=== PATIENT | male | born 1970 | race Caucasian/White ===

== ENCOUNTER → 2017-07-08 | Outpatient (CLI) | payer MEDICARE, MEDICAID ==
[~2017-07-08] MED LIST: BISO1TAB8; BISO1TAB8 PO; CPR500T PO; CYCL10TA9 PO; CYCL5TAB PO; HYDR-3875 PO; IBUP-1780 PO; LORA10TA7 PO; MELO-170 PO; METR500T PO; MONT10TA21 PO; MONT10TA24 PO; NAPR-243 PO; NF-ESOM40C; NITR-65 PO; OMEP-10 PO; OMEP20TA7 PO; OXYC-471 PO; PRM25T PO; PROP1TAB77 PO; TAMS0.4C98 PO; TRAM50TA2 PO; ZLP10T; xopenex
--- NOTE | 2017-07-08 14:16 | Diagnostic Imaging Report ---
INDICATION: Left ureteral stone. TIME OF EXAMINATION: 02:00 p.m. COMPARISON: No prior studies available for comparison. FINDINGS: There is a 10 mm calcific density in the left abdomen, adjacent to the left transverse process of L3. This most likely represents a ureteral calculus. No other urinary tract calculi are seen. There is moderate stool in the right colon. IMPRESSION: Findings suggestive of left ureteral calculus. Dictated by: Dictated on workstation # [id number]
== END ==
LOC: RAD 13:50
PROVIDERS: ATTEND Urology
DX: N20.1 Calculus of ureter (principal)
CPT/HCPCS: 74018

== ENCOUNTER 2017-07-09 05:35 | Outpatient (CLI) | payer MEDICARE, MEDICAID ==
[~2017-07-09] VITALS: Ht 162.6 cm; Wt 75.1 kg
[~2017-07-09 05:35] MED LIST changes: -HYDR-3875 PO; -IBUP-1780 PO; -LORA10TA7 PO; -MONT10TA24 PO; -NITR-65 PO; -OMEP20TA7 PO; -OXYC-471 PO; -TAMS0.4C98 PO
[2017-07-09] MEDS ORDERED: OMEP20TA7 PO (12:07)
[2017-07-09] MEDS ORDERED: LORA10TA7 PO (12:07)
[2017-07-09] MEDS ORDERED: MONT10TA24 PO (12:07)
[2017-07-09] MEDS ORDERED: OXYC-471 PO (12:07)
[2017-07-09] MEDS ORDERED: IBUP-1780 PO (12:07)
[2017-07-10] MEDS ORDERED: NITR-65 PO (12:53)
[2017-07-10] MEDS ORDERED: HYDR-3875 PO (12:53)
[2017-07-10] MEDS ORDERED: TAMS0.4C98 PO (12:53)
== END 2017-07-09 12:15 ==
LOC: PREOP 05:35
PROVIDERS: ATTEND Urology
DX: Z01.818 Encounter for other preprocedural examination (principal); N20.1 Calculus of ureter; N20.0 Calculus of kidney

== ENCOUNTER 2017-07-11 21:30 | Emergency (ER) | payer MEDICARE, MEDICAID ==
[~2017-07-11] VITALS: Ht 162.6 cm; Wt 68.0 kg
[~2017-07-11 21:30] MED LIST changes: +DEXAMETHASONE 10 MG/ML (DECADRON) 1 ML VIAL ONE; +FUROSEMIDE 40 MG/4 ML INJ (LASIX) ONE; +HYDR-3875 PO; +IBUP-1780 PO; +KETOROLAC 30 MG/ML VIAL ONE; +LIDOCAINE PF 2% 5 ML (XYLOCAINE) VIAL ONE; +LORA10TA7 PO; +MIDAZOLAM 2 MG/2 ML (VERSED) VIAL ONE; +MONT10TA24 PO; +NITR-65 PO; +OMEP20TA7 PO; +ONDANSETRON 4 MG/2 ML (SDV) Z0FRAN ONE; +OXYC-471 PO; +SEVOFLURANE (ULTANE) 15 ML INHAL SOLN ONE; +TAMS0.4C98 PO; +fentaNYL INJECTION 100 MCG/2 ML AMP ONE; +proPOfol 200 MG/20 ML (DIPRIVAN) VIAL IV ONE
--- OUTSIDE RECORDS SUMMARY | 2017-07-11 21:35 | XMS REPORT | Continuity of Care Document ---
Author Author [facility] Organization [facility] Address Unknown Phone Unavailable Allergies Active Description Code Type Severity Reaction Onset Reported/Identified Relationship to Patient Clinical Status Yes No Known Drug Allergies [id number] Drug Allergy Unknown N/A 01/26/2009 Medications There is no data. Problems Date Dx Coded Attending Type Code Diagnosis Diagnosed By 02/15/2010 Ot 729.5 04/20/2010 Ot 272.4 04/20/2010 Ot 275.2 04/20/2010 Ot 276.8 04/20/2010 Ot 401.9 04/20/2010 Ot 493.90 04/20/2010 Ot 530.81 04/20/2010 Ot 558.9 04/20/2010 Ot 729.1 04/20/2010 Ot V58.69 05/09/2011 Ot 272.4 05/09/2011 Ot 288.60 05/09/2011 Ot 401.9 05/09/2011 Ot 429.3 05/09/2011 Ot 786.50 05/09/2011 Ot 790.4 07/17/2013 JOBY TRAN, BHARAT Graham Ot 558.9 07/17/2013 JOBY TRAN, BHARAT Graham Ot 787.91 06/28/2015 SACHI BOYD TASHIA Edward Ot E07.89 06/28/2015 SACHI DO TASHIA K Ot I69.998 06/28/2015 BINGHAM , TASHIA K Ot M47.892 06/28/2015 BINGHAM , TASHIA K Ot R93.7 06/28/2015 SACHI , TASHIA K Ot S06.0X1A 06/28/2015 SACHI , TASHIA K Ot S16.1XXA 06/28/2015 BINGHAM , TASHIA K Ot V43.52XA 06/28/2015 BINGHAM , TASHIA K Ot Y92.414 06/28/2015 BINGHAM , TASHIA K Ot Y99.8 06/28/2015 Ot 401.9 06/28/2015 Ot 780.79 06/28/2015 Ot 785.1 06/28/2015 Ot 786.50 06/28/2015 Ot 786.50 Procedures There is no data. Results Test Result Range Methicillin resistant Staphylococcus aureus (MRSA) screening culture - 08:10 Methicillin resistant Staphylococcus aureus (MRSA) screening culture NEG NRG Encounters ACCT No. Visit Date/Time Discharge Status Pt. Type Provider Facility Loc./Unit Complaint [id number] 06/28/2015 18:13:00 06/28/2015 19:26:00 DIS Emergency TASHIA KARIMI DO [facility] ER [id number] 07/17/2013 21:15:00 07/17/2013 23:37:00 DIS Emergency BHARAT HEMPHILL MD [facility] ER [id number] 07/10/2017 07:45:00 Document Registration [id number] 06/28/2015 19:36:00 Document Registration [id number] 05/16/2011 09:50:00 Document Registration [id number] 05/08/2011 15:30:00 Document Registration [id number] 04/19/2010 03:41:00 Document Registration [id number] 02/15/2010 12:31:00 Document Registration [id number] 01/27/2010 09:06:00 Document Registration
--- OUTSIDE RECORDS SUMMARY | 2017-07-11 21:35 | XMS REPORT | Clinical Summary ---
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 If you do not see the information that you expected, contact Release of Information in the Health Information Management department at [phone] for further assistance in locating additional records.[facility] Allergies No Known Allergies Current Medications Prescription Sig. Disp. Refills Start End Date Status Date vitamins, B complex tab Take 1 Tab by mouth Active daily. CA COMB NO.1/VIT Take by mouth. 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 Family History Medical History Relation Name Comments Diabetes Maternal Aunt Diabetes Maternal Grandfather Hypertension Maternal Grandfather Glaucoma Maternal Grandmother Neurologic Disorder Maternal Parkinson's Grandmother Diabetes Maternal Uncle Cancer Maternal Uncle Thyroid Disease Mother Diabetes Other MGGM Relation Name Status Comments Maternal Aunt Maternal Grandfather Maternal Grandmother Maternal Uncle Maternal Uncle Mother Other MGGM Social History Tobacco Use Types Packs/Day Years Used Date Never Smoker Alcohol Use Drinks/Week oz/Week Comments No 0 Standard 0.0 drinks or equivalent Sex Assigned at Date Recorded Not on file Last Filed Vital Signs Vital Sign Reading Time Taken Blood Pressure 141/94 12/16/2014 3:27 PM CDT Pulse 79 12/16/2014 3:27 PM CDT Temperature - - Respiratory Rate - - Oxygen Saturation - - Inhaled Oxygen - - Concentration Weight 65.8 kg (145 lb) 12/16/2014 3:27 PM CDT Height 162.6 cm (5' 4") 12/16/2014 3:27 PM CDT Body Mass Index 24.89 12/16/2014 3:27 PM CDT Plan of Treatment Health Maintenance Due Date Last Done Comments PHYSICAL (COMPREHENSIVE) 10/13/1979 EXAM PERTUSSIS VACCINE 10/13/1983 TETANUS VACCINE 1989 INFLUENZA VACCINE 01/08/2017 Results Not on filefrom Last 3 Months
--- NOTE | 2017-07-11 21:42 | ED GU-Male ---
General Stated Complaint: KIDNEY STONE Source: patient, EMS Exam Limitations: no limitations History of Present Illness Date Seen by Provider: Jul 11, 2017 Time Seen by Provider: 21:30 Initial Comments Patient presents to ER by EMS with chief complaint that he had stones broke up yesterday or the day before by lithotripsy by his urologist Dr. Francis. He was doing okay but last night he was having quite a bit of pain around 8 or 9:00 U after taking his pain medicine and tonight came back again about 10 out of 10 and his 5 mg hydrocodone did not seem to help. EMS picked him up he is having a lot of left flank pain and gave him 5 mg of morphine and 4 mg of Zofran en route as well as started a liter bag of fluids and a left antecubital 18-gauge IV. Patient says his pain is now about 7-1/2 out of 10 and he still needing something for pain although is not having any nausea. Patient says sometimes it jim a little when he PEs and he's been straining his urine but not seeing any fragments. He's not seeing any hematuria either. Says his thought he might of had a temperature earlier based on feel but EMS reports 99.5F. Allergies and Home Medications Allergies Coded Allergies: No Known Drug Allergies (Unverified , 07/09/17) Home Medications Hydrocodone/Acetaminophen 1 Each Tablet, 1-2 TAB PO Q4H PRN for PAIN, #30 Ref 0 Prescribed by: ANGELA TSAI on 07/10/17 1253 Ibuprofen 800 Mg Tablet, 800 MG PO Q8H PRN for PAIN, (Reported) Loratadine 10 Mg Tablet, 10 MG PO DAILY, (Reported) Montelukast Sodium 10 Mg Tablet, 10 MG PO DAILY, (Reported) Nitrofurantoin Monohyd/M-Cryst 100 Mg Capsule, 1 CAP PO BID for 7 Days, Ref 0 Prescribed by: ANGELA TSAI on 07/10/17 1253 Omeprazole 20 Mg Tablet.dr, 20 MG PO DAILY, (Reported) Oxycodone HCl/Acetaminophen 1 Each Tablet, 1 EACH PO Q6H PRN for PAIN-MODERATE TO SEVERE, (Reported) Oxycodone HCl/Acetaminophen 1 Each Tablet, 1-2 EACH PO Q4H PRN for BREAKTHROUGH PAIN, #30 Ref 0 Prescribed by: ROSA ESPINAL on 07/11/171 Tamsulosin HCl 0.4 Mg Cap, 1 CAP PO DAILY, #14 Ref 0 Prescribed by: ANGELA TSAI on 07/10/17 1253 Constitutional: No chills, No diaphoresis, fever (subjective), No malaise EENTM: No ear pain, No eye pain Respiratory: No cough, No short of breath Cardiovascular: No chest pain, No palpitations Gastrointestinal: abdominal pain (left flank), No constipation, No diarrhea, nausea, No vomiting Genitourinary: burning, denies discharge, dysuria, denies frequency, flank pain (left) Musculoskeletal: see HPI Skin: No pruritus, No rash Past Wzgeyqx-Lchvjl-Eezmbv Hx Patient Social History Recent Hopitalizations: No Immunizations Up To Date Tetanus Booster (TDap): Unknown Seasonal Allergies Seasonal Allergies: Yes Surgeries Surgeries: Gallbladder Cardiovascular Cardiac Disorders: Valvular Heart Disease Neurological Neurological Disorders: Stroke Reproductive System Hx Reproductive Disorders: No Sexually Transmitted Disease: No HIV/AIDS: No Genitourinary Genitourinary Disorders: Prostate Problems, Kidney Stones Gastrointestinal Gastrointestinal Disorders: Gastroesophageal Reflux HEENT Loss of Vision: Right Hearing Impairment: Denies Blood Transfusions Adverse Reaction to a Blood Tr: No (N/A) Physical Exam Vital Signs Vital Sign - Last 12Hours 07/11/17 21:30 Temp 99.7 Pulse 104 Resp 23 B/P (MAP) 129/81 (97) Pulse Ox 98 O2 Delivery Room Air Capillary Refill : General Appearance: WD/WN, mild distress HEENT: PERRL/EOMI, pharynx normal (oral mucosa is moist) Neck: non-tender, supple, normal inspection Cardiovascular: normal peripheral pulses, regular rate, rhythm, no edema Respiratory: chest non-tender, lungs clear, normal breath sounds, no respiratory distress, no accessory muscle use Gastrointestinal: normal bowel sounds, non tender, soft Back: normal inspection, No CVA tenderness (R), CVA tenderness (L) Extremities: normal range of motion, non-tender, normal inspection Neurologic/Psychiatric: alert, normal mood/affect, oriented x 3 Skin: normal color, warm/dry, rash (eczematous rash on face and all 4 extremities) Progress/Results/Core Measures Suspected Sepsis SIRS Temperature: Pulse: Respiratory Rate: Laboratory Tests 07/11/17 21:46: White Blood Count 9.8 Blood Pressure / Mean: Laboratory Tests 07/11/17 21:46: Creatinine 1.00, Platelet Count 268, Total Bilirubin 0.5 Results/Orders Lab Results Laboratory Tests Test 07/11/17 21:46 07/11/17 22:56 Range/Units White Blood Count 9.8 4.3-11.0 10^3/uL Red Blood Count 4.03 L 4.35-5.85 10^6/uL Hemoglobin 12.1 L 13.3-17.7 G/DL Hematocrit 35 L 40-54 % Mean Corpuscular Volume 88 80-99 FL Mean Corpuscular Hemoglobin 30 25-34 PG Mean Corpuscular Hemoglobin Concent 34 32-36 G/DL Red Cell Distribution Width 12.4 10.0-14.5 % Platelet Count 268 130-400 10^3/uL Mean Platelet Volume 9.8 7.4-10.4 FL Neutrophils (%) (Auto) 90 H 42-75 % Lymphocytes (%) (Auto) 7 L 12-44 % Monocytes (%) (Auto) 3 0-12 % Eosinophils (%) (Auto) 0 0-10 % Basophils (%) (Auto) 0 0-10 % Neutrophils # (Auto) 8.8 H 1.8-7.8 X 10^3 Lymphocytes # (Auto) 0.7 L 1.0-4.0 X 10^3 Monocytes # (Auto) 0.2 0.0-1.0 X 10^3 Eosinophils # (Auto) 0.0 0.0-0.3 10^3/uL Basophils # (Auto) 0.0 0.0-0.1 10^3/uL Neutrophils % (Manual) 77 % Lymphocytes % (Manual) 9 % Monocytes % (Manual) 3 % Eosinophils % (Manual) 1 % Basophils % (Manual) 0 % Band Neutrophils 10 % Blood Morphology Comment NORMAL Sodium Level 137 135-145 MMOL/L Potassium Level 3.5 L 3.6-5.0 MMOL/L Chloride Level 102 98-107 MMOL/L Carbon Dioxide Level 24 21-32 MMOL/L Anion Gap 11 5-14 MMOL/L Blood Urea Nitrogen 12 7-18 MG/DL Creatinine 1.00 0.60-1.30 MG/DL Estimat Glomerular Filtration Rate > 60 BUN/Creatinine Ratio 12 Glucose Level 124 H 70-105 MG/DL Calcium Level 8.8 8.5-10.1 MG/DL Total Bilirubin 0.5 0.1-1.0 MG/DL Aspartate Amino Transf (AST/SGOT) 21 5-34 U/L Alanine Aminotransferase (ALT/SGPT) 29 0-55 U/L Alkaline Phosphatase 97 40-136 U/L Total Protein 6.2 L 6.4-8.2 GM/DL Albumin 3.4 3.2-4.5 GM/DL Urine Color SARI H Urine Clarity SLIGHTLY CLOUDY Urine pH 7 5-9 Urine Specific Carmen 1.010 L 1.016-1.022 Urine Protein 1+ H NEGATIVE Urine Glucose (UA) NEGATIVE NEGATIVE Urine Ketones NEGATIVE NEGATIVE Urine Nitrite NEGATIVE NEGATIVE Urine Bilirubin NEGATIVE NEGATIVE Urine Urobilinogen 1 NORMAL MG/DL Urine Leukocyte Esterase 1+ H NEGATIVE Urine RBC (Auto) 5+ H NEGATIVE Urine RBC >100 H /HPF Urine WBC 2-5 /HPF Urine Crystals NONE /LPF Urine Bacteria NONE /HPF Urine Casts NONE /LPF Urine Mucus NEGATIVE /LPF Urine Culture Indicated NO My Orders Orders - ROSA ESPINAL Cbc With Automated Diff (07/11/17 21:36) Comprehensive Metabolic Panel (07/11/17 21:36) Ua Culture If Indicated (07/11/17 21:36) Fentanyl Injection (Sublimaze Injection (07/11/17 21:45) Abdomen/Kub 1view (07/11/17 21:37) Ceftriaxone Injection (Rocephin Injectio (07/11/17 21:45) Manual Differential (07/11/17 21:46) Ondansetron Injection (Zofran Injectio (07/11/17 22:30) Ondansetron Injection (Zofran Injectio (07/11/17 22:23) Fentanyl Injection (Sublimaze Injection (07/11/17 22:45) Fentanyl Injection (Sublimaze Injection (07/11/17 22:45) Ketorolac Injection (Toradol Injection) (07/11/17 22:45) Medications Given in ED Current Medications Medications Dose Ordered Sig/Ana Cristina Route Start Time Stop Time Status Last Admin Dose Admin Ceftriaxone Sodium 1000 mg/ Sodium Chloride 50 ml @ 100 mls/hr ONCE ONCE IV 07/11/17 21:45 07/11/17 22:14 DC 07/11/17 22:08 100 MLS/HR Fentanyl Citrate 50 mcg ONCE ONCE IVP 07/11/17 21:45 07/11/17 21:46 DC 07/11/17 21:40 50 MCG Fentanyl Citrate 50 mcg ONCE ONCE IVP 07/11/17 22:45 07/11/17 22:46 DC 07/11/17 22:52 50 MCG Ketorolac Tromethamine 30 mg ONCE ONCE IVP 07/11/17 22:45 07/11/17 22:46 DC 07/11/17 22:52 30 MG Ondansetron HCl 4 mg ONCE ONCE IVP 07/11/17 22:30 07/11/17 22:31 DC 07/11/17 22:26 4 MG Vital Signs/I&O Vital Sign - Last 12Hours 07/11/17 21:30 Temp 99.7 Pulse 104 Resp 23 B/P (MAP) 129/81 (97) Pulse Ox 98 O2 Delivery Room Air Capillary Refill : Progress Note : Time: 21:41 Progress Note Repeat urine blood and an x-ray. We have his x-ray from yesterday demonstrating a mid ureteral stone on the left side. We will give him some more pain medicine. Unfortunately the urinalysis and culture were not obtained here so we cannot follow that to see if the Macrobid is appropriate and is going to give him a round of Rocephin. Diagnostic Imaging Diagonstic Imaging: Xray Plain Films/CT/US/NM/MRI: abdomen (KUB 1 view) Comments Kidney stone seen in the left ureter is about 2 cm more inferior than seen on the KUB from yesterday. Reviewed: Reviewed by Me Departure Impression Impression: Primary Impression: Ureteral calculus, left Disposition: 01 HOME, SELF-CARE Condition: Improved Departure-Patient Inst. Decision time for Depature: 23:45 Referrals: SELF,BRE TRAN (PCP/Family) Primary Care Physician Patient Instructions: Kidney Stones (DC) Add. Discharge Instructions: Tomorrow morning call Dr. Ayers, urology at [phone] follow-up on the urine culture obtained and make sure you're on appropriate antibiotic. Continue to drink a lot of fluids and use the nausea medicines, Zofran/ondansetron, one tablet every 6 hours as needed. Take 1-2 Percocet every 4 hours as needed to control your pain. Use MiraLAX while you're on the Percocet as he will become constipated. Scripts Oxycodone HCl/Acetaminophen (Percocet 10-325 mg Tablet) 1 Each Tablet 1-2 EACH PO Q4H Y for BREAKTHROUGH PAIN, #30 TAB 0 Refills Prov: ROSA ESPINAL 07/11/17 Copy Copies To 1: BRE LOBO MD Copies To 2: MAX FRANCIS MD, TITUS J Jul 11, 2017 21:42
[2017-07-11] MEDS ORDERED: cefTRIAXone INJECTION 1,000 MG in NS (IVPB) 50 ML IV ONE (21:45)
[2017-07-11] MEDS ORDERED: fentaNYL INJECTION 100 MCG/2 ML AMP IVP ONE ×3 (21:45→22:45)
[2017-07-11 22:00] LABS: BASOPHILS % (AUTO) 0 % (0-10); EOSINOPHILS % (AUTO) 0 % (0-10); HEMATOCRIT 35 % (40-54); HEMOGLOBIN 12.1 G/DL (13.3-17.7); LYMPHOCYTES # (AUTO) 0.7 X 10^3 (1.0-4.0); LYMPHOCYTES % (AUTO) 7 % (12-44); MEAN CORPUSCULAR HEMOGLOBIN 30 PG (25-34); MEAN CORPUSCULAR HGB CONC 34 G/DL (32-36); MEAN CORPUSCULAR VOLUME 88 FL (80-99); MEAN PLATELET VOLUME 9.8 FL (7.4-10.4); MONOCYTES # (AUTO) 0.2 X 10^3 (0.0-1.0); MONOCYTES % (AUTO) 3 % (0-12); NEUTROPHILS # (AUTO) 8.8 X 10^3 (1.8-7.8); NEUTROPHILS % (AUTO) 90 % (42-75); PLATELET COUNT 268 10^3/uL (130-400); RED BLOOD COUNT 4.03 10^6/uL (4.35-5.85); RED CELL DISTRIBUTION WIDTH 12.4 % (10.0-14.5); WHITE BLOOD COUNT 9.8 10^3/uL (4.3-11.0)
[2017-07-11 22:18] LABS: ALANINE AMINOTRANSFERASE 29 U/L (0-55); ALBUMIN 3.4 GM/DL (3.2-4.5); ALKALINE PHOSPHATASE 97 U/L (40-136); BAND NEUTROPHILS 10 %; BASOPHILS % (MANUAL) 0 %; BILIRUBIN,TOTAL 0.5 MG/DL (0.1-1.0); BUN/CREATININE RATIO 12; CALCIUM 8.8 MG/DL (8.5-10.1); CARBON DIOXIDE 24 MMOL/L (21-32); CHLORIDE 102 MMOL/L (98-107); EOSINOPHILS % (MANUAL) 1 %; GFR ESTIMATED > 60; GLUCOSE 124 MG/DL (70-105); LYMPHOCYTES % (MANUAL) 9 %; MONOCYTES % (MANUAL) 3 %; NEUTROPHILS % (MANUAL) 77 %; POTASSIUM 3.5 MMOL/L (3.6-5.0); RBC MORPH NORMAL; SODIUM 137 MMOL/L (135-145); TOTAL PROTEIN 6.2 GM/DL (6.4-8.2)
[2017-07-11] MEDS ORDERED: ONDANSETRON 4 MG/2 ML (SDV) Z0FRAN ONE (22:23)
[2017-07-11] MEDS ORDERED: ONDANSETRON 4 MG/2 ML (SDV) Z0FRAN IVP ONE (22:30)
[2017-07-11] MEDS ORDERED: OXYC-202 PO (22:31)
[2017-07-11] MEDS ORDERED: KETOROLAC 30 MG/ML VIAL IVP ONE (22:45)
[2017-07-11 23:01] LABS: BILIRUBIN,URINE NEGATIVE (NEGATIVE); CLARITY,URINE SLIGHTLY CLOUDY; COLOR,URINE AMBER; GLUCOSE, URINE (UA) NEGATIVE (NEGATIVE); KETONES,URINE NEGATIVE (NEGATIVE); LEUKOCYTE ESTERASE ,URINE 1+ (NEGATIVE); NITRITE,URINE NEGATIVE (NEGATIVE); PH,URINE 7 (5-9); PROTEIN,URINE 1+ (NEGATIVE); UROBILINOGEN,URINE 1 MG/DL (NORMAL)
[2017-07-11 23:09] LABS: RBC,URINE >100 /HPF
[2017-07-12 00:14] VITALS: BP 128/81
--- NOTE | 2017-07-12 06:47 | Diagnostic Imaging Report ---
INDICATION: Left flank pain. FINDINGS: The bowel gas pattern is nonspecific. There are no abnormal abdominal calcifications. Surgical clips are seen in the right upper quadrant. There is a calcification in the left abdomen just below the region of the left UPJ. Possibility of stone cannot be excluded. IMPRESSION: Findings suspect for stone in the proximal left ureter. Recommend clinical correlation and if warranted followup with CT. Dictated by: Dictated on workstation # [id number]
== END 2017-07-12 00:14 | disposition home or self-care (01) ==
LOC: EDUNIT# 21:30 → ER 21:31
DX: N20.1 Calculus of ureter (principal); K21.9 Gastro-esophageal reflux disease without esophagitis; Z87.42 Personal history of other diseases of the female genital tract; Z86.73 Personal history of transient ischemic attack (TIA), and cerebral infarction without residual deficits
CPT/HCPCS: 36415; 74018; 80053; 81000; 85007; 85027; 96365; 96375; 96376

== ENCOUNTER → 2017-07-22 | Outpatient (CLI) | payer MEDICARE, MEDICAID ==
[~2017-07-22] MED LIST changes: -DEXAMETHASONE 10 MG/ML (DECADRON) 1 ML VIAL ONE; -FUROSEMIDE 40 MG/4 ML INJ (LASIX) ONE; -KETOROLAC 30 MG/ML VIAL ONE; -LIDOCAINE PF 2% 5 ML (XYLOCAINE) VIAL ONE; -MIDAZOLAM 2 MG/2 ML (VERSED) VIAL ONE; -ONDANSETRON 4 MG/2 ML (SDV) Z0FRAN ONE; +OXYC-202 PO; -SEVOFLURANE (ULTANE) 15 ML INHAL SOLN ONE; -fentaNYL INJECTION 100 MCG/2 ML AMP ONE; -proPOfol 200 MG/20 ML (DIPRIVAN) VIAL IV ONE
--- NOTE | 2017-07-22 15:52 | Diagnostic Imaging Report ---
INDICATION: Left ureteral stone, post ESWL. TIME OF EXAM: 02:27 p.m. Correlation is made with prior study from 07/11/2017. FINDINGS: Previously seen left abdominal calcification now appears to have progressed distally. There are two calcific densities in the left pelvis, likely fragmented distal left ureteral calculi. Pelvic phleboliths are also present. Bowel gas pattern is unremarkable. IMPRESSION: Progression of left ureteral calculi into the region of the distal left ureter near the UVJ. Dictated by: Dictated on workstation # [id number]
== END ==
LOC: RAD 13:58
PROVIDERS: ATTEND Urology
DX: N20.1 Calculus of ureter (principal); Z98.890 Other specified postprocedural states
CPT/HCPCS: 74018

== ENCOUNTER → 2017-07-23 | Outpatient (CLI) | payer MEDICARE, MEDICAID ==
[2017-07-23 10:10] LABS: BUN/CREATININE RATIO 16; CALCIUM 9.7 MG/DL (8.5-10.1); CARBON DIOXIDE 25 MMOL/L (21-32); CHLORIDE 102 MMOL/L (98-107); CREATININE SERUM 0.83 MG/DL (0.60-1.30); GFR ESTIMATED > 60; GLUCOSE 77 MG/DL (70-105); PHOSPHORUS 2.6 MG/DL (2.3-4.7); POTASSIUM 4.1 MMOL/L (3.6-5.0); SODIUM 138 MMOL/L (135-145); URIC ACID 5.4 MG/DL (2.6-7.2)
== END ==
LOC: LAB 09:27
PROVIDERS: ATTEND Urology
DX: N20.9 Urinary calculus, unspecified (principal)
CPT/HCPCS: 36415; 80048; 83970; 84100; 84550

== ENCOUNTER → 2017-08-19 | Outpatient (CLI) | payer MEDICARE, MEDICAID ==
--- NOTE | 2017-08-19 14:23 | Diagnostic Imaging Report ---
EXAMINATION: Supine abdomen at 2:05 p.m. INDICATION: Left nephrolithiasis, left-sided pain. FINDINGS: The prior abdomen exam of 07/22/2017 noted two calcific densities low in the pelvis on the left. Those calcifications are no longer evident. There are a few other calcifications on each side of the pelvis. These were present on the prior exam and have not changed. I suspect that they are phleboliths. There is no other evidence for a pathological calcification, although both kidneys are partially obscured by bowel gas and fecal material. There is no mass or organomegaly appreciated. The bowel gas pattern itself is nonspecific. Surgical clips are again seen in the right upper quadrant. The osseous structures are intact. IMPRESSION: 1. The two calcifications low in the pelvis on the left seen on the prior exam are no longer visualized on this study. 2. There are no other pathological calcifications noted. Dictated by: Dictated on workstation # [id number]
== END ==
LOC: RAD 13:31
PROVIDERS: ATTEND Urology
DX: N20.2 Calculus of kidney with calculus of ureter (principal)
CPT/HCPCS: 74018

== ENCOUNTER 2018-01-12 07:16 | Emergency (ER) | payer MEDICARE, MEDICAID ==
[~2018-01-12] VITALS: Ht 167.6 cm; Wt 72.6 kg
--- NOTE | 2018-01-12 07:36 | ED General ---
General Chief Complaint: Neurological Problems Stated Complaint: ANXIETY Source of Information: Patient, EMS Exam Limitations: No Limitations History of Present Illness Date Seen by Provider: Jan 12, 2018 Time Seen by Provider: 07:23 Initial Comments Patient presents to ER by EMS with chief complaint that he woke up this morning feeling a little off like his body was on fire and then had a collapsed in the living room did not strike his head or lose consciousness and started having numbness and tingling in his fingers and mouth. He has no history of anxiety depression or panic attacks. He is not having any chest pains or palpitations, nausea, vomiting, diarrhea, fevers, chills, however today he feels malaise and weak all over. He's had a history of high blood pressure and was on blood pressure medicines but then they took him off it because his blood pressure is very labile. He has no other diagnoses medical or psychiatric. No recent trauma or surgery. No shortness of breath. Allergies and Home Medications Allergies Coded Allergies: No Known Drug Allergies (Unverified , 07/09/17) Home Medications Hydrocodone/Acetaminophen 1 Each Tablet, 1-2 TAB PO Q4H PRN for PAIN Prescribed by: ANGELA TSAI on 07/10/17 1253 Ibuprofen 800 Mg Tablet, 800 MG PO Q8H PRN for PAIN, (Reported) Loratadine 10 Mg Tablet, 10 MG PO DAILY, (Reported) Montelukast Sodium 10 Mg Tablet, 10 MG PO DAILY, (Reported) Nitrofurantoin Monohyd/M-Cryst 100 Mg Capsule, 1 CAP PO BID Prescribed by: ANGELA TSAI on 07/10/17 1253 Omeprazole 20 Mg Tablet.dr, 20 MG PO DAILY, (Reported) Oxycodone HCl/Acetaminophen 1 Each Tablet, 1 EACH PO Q6H PRN for PAIN-MODERATE TO SEVERE, (Reported) Oxycodone HCl/Acetaminophen 1 Each Tablet, 1-2 EACH PO Q4H PRN for BREAKTHROUGH PAIN Prescribed by: ROSA ESPINAL on 07/11/172230 Tamsulosin HCl 0.4 Mg Cap, 1 CAP PO DAILY Prescribed by: ANGELA TSAI on 07/10/17 1253 Patient Home Medication List Home Medication List Reviewed: Yes Review of Systems Constitutional: No chills, No diaphoresis EENTM: No ear discharge, No ear pain Respiratory: No cough, No short of breath Cardiovascular: No chest pain, No edema, No Hx of Intervention, No palpitations , No syncope Gastrointestinal: No abdominal pain, No constipation, No diarrhea, No loss of appetite, No melena, No nausea, No vomiting Genitourinary: No discharge, No dysuria Musculoskeletal: No back pain, No joint pain Skin: No pruritus, No rash Psychiatric/Neurological: See HPI; Denies Anxiety, Denies Depressed, Denies Headache, Denies Numbness; Paresthesia Past Wvowwil-Cngqmk-Epvwmr Hx Patient Social History Alcohol Use: Denies Use Recreational Drug Use: No Smoking Status: Never a Smoker Recent Foreign Travel: No Contact w/Someone Who Travel: No Recent Hopitalizations: No Immunizations Up To Date Tetanus Booster (TDap): Unknown Seasonal Allergies Seasonal Allergies: Yes Past Medical History Surgeries: Yes (Gall Bladder`removed) Gallbladder Respiratory: No Cardiac: Yes (MITRAL VALVE PROLAPSE) Valvular Heart Disease 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) Stroke Reproductive Disorders: No Sexually Transmitted Disease: No HIV/AIDS: No Genitourinary: Yes Prostate Problems, Kidney Stones Gastrointestinal: Yes Gastroesophageal Reflux Musculoskeletal: No Endocrine: Yes (THYROID NODULE) Loss of Vision: Right Hearing Impairment: Denies Cancer: No Psychosocial: No Integumentary: No Blood Disorders: No Adverse Reaction/Blood Tranf: No (N/A) Physical Exam Vital Signs Vital Signs - First Documented 01/12/18 07:31 Temp 98.9 Pulse 89 Resp 18 B/P (MAP) 126/82 (97) Pulse Ox 98 O2 Delivery Room Air Capillary Refill : Height, Weight, BMI Height: 5'4.00" Weight: 150lbs. 8.0oz. 68.697866yn; 28.4 BMI Method:Stated General Appearance: No Apparent Distress, WD/WN Eyes: Bilateral Eye Normal Inspection, Bilateral Eye PERRL, Bilateral Eye EOMI HEENT: PERRL/EOMI, TMs Normal, Normal ENT Inspection, Pharynx Normal Neck: Full Range of Motion, Normal Inspection, Non Tender, Supple Respiratory: Chest Non Tender, Lungs Clear, Normal Breath Sounds, No Accessory Muscle Use, No Respiratory Distress Cardiovascular: Regular Rate, Rhythm, No Edema, No Gallop, No Murmur, Normal Peripheral Pulses Gastrointestinal: Normal Bowel Sounds, No Organomegaly, Non Tender, Soft Back: Normal Inspection, No CVA Tenderness Extremity: Normal Capillary Refill, Normal Inspection, Non Tender, No Calf Tenderness, No Pedal Edema Neurologic/Psychiatric: Alert, Oriented x3, No Motor/Sensory Deficits Skin: Normal Color, Warm/Dry Focused Exam Respiratory: Chest Non Tender, Lungs Clear, Normal Breath Sounds, No Accessory Muscle Use, No Respiratory Distress Cardiovascular: Regular Rate, Rhythm, No Edema, Normal Peripheral Pulses Progress/Results/Core Measures Suspected Sepsis SIRS Temperature: Pulse: Respiratory Rate: Laboratory Tests 01/12/18 07:40: White Blood Count 17.1H Blood Pressure / Mean: Laboratory Tests 01/12/18 07:40: Creatinine 1.05, Platelet Count 254, Total Bilirubin 1.2H Results/Orders Lab Results Laboratory Tests Test 01/12/18 07:40 01/12/18 09:27 Range/Units White Blood Count 17.1 H 4.3-11.0 10^3/uL Red Blood Count 5.11 4.35-5.85 10^6/uL Hemoglobin 14.9 13.3-17.7 G/DL Hematocrit 43 40-54 % Mean Corpuscular Volume 85 80-99 FL Mean Corpuscular Hemoglobin 29 25-34 PG Mean Corpuscular Hemoglobin Concent 34 32-36 G/DL Red Cell Distribution Width 13.8 10.0-14.5 % Platelet Count 254 130-400 10^3/uL Mean Platelet Volume 10.1 7.4-10.4 FL Neutrophils (%) (Auto) 91 H 42-75 % Lymphocytes (%) (Auto) 5 L 12-44 % Monocytes (%) (Auto) 4 0-12 % Eosinophils (%) (Auto) 0 0-10 % Basophils (%) (Auto) 0 0-10 % Neutrophils # (Auto) 15.5 H 1.8-7.8 X 10^3 Lymphocytes # (Auto) 0.9 L 1.0-4.0 X 10^3 Monocytes # (Auto) 0.6 0.0-1.0 X 10^3 Eosinophils # (Auto) 0.0 0.0-0.3 10^3/uL Basophils # (Auto) 0.0 0.0-0.1 10^3/uL Neutrophils % (Manual) 91 % Lymphocytes % (Manual) 5 % Monocytes % (Manual) 4 % Band Neutrophils 4 % Blood Morphology Comment NORMAL Sodium Level 135 135-145 MMOL/L Potassium Level 4.0 3.6-5.0 MMOL/L Chloride Level 102 98-107 MMOL/L Carbon Dioxide Level 23 21-32 MMOL/L Anion Gap 10 5-14 MMOL/L Blood Urea Nitrogen 11 7-18 MG/DL Creatinine 1.05 0.60-1.30 MG/DL Estimat Glomerular Filtration Rate > 60 BUN/Creatinine Ratio 10 Glucose Level 160 H 70-105 MG/DL Calcium Level 8.8 8.5-10.1 MG/DL Total Bilirubin 1.2 H 0.1-1.0 MG/DL Aspartate Amino Transf (AST/SGOT) 23 5-34 U/L Alanine Aminotransferase (ALT/SGPT) 18 0-55 U/L Alkaline Phosphatase 101 40-136 U/L C-Reactive Protein High Sensitivity 2.11 H 0.00-0.50 MG/DL Total Protein 6.6 6.4-8.2 GM/DL Albumin 4.0 3.2-4.5 GM/DL Thyroid Stimulating Hormone (TSH) 0.89 0.35-4.94 UIU/ML Urine Color YELLOW Urine Clarity CLEAR Urine pH 7 5-9 Urine Specific [place] 1.005 L 1.016-1.022 Urine Protein 1+ H NEGATIVE Urine Glucose (UA) NEGATIVE NEGATIVE Urine Ketones NEGATIVE NEGATIVE Urine Nitrite NEGATIVE NEGATIVE Urine Bilirubin NEGATIVE NEGATIVE Urine Urobilinogen NORMAL NORMAL MG/DL Urine Leukocyte Esterase NEGATIVE NEGATIVE Urine RBC (Auto) NEGATIVE NEGATIVE Urine RBC NONE /HPF Urine WBC 0-2 /HPF Urine Crystals NONE /LPF Urine Bacteria NEGATIVE /HPF Urine Casts PRESENT /LPF Urine Hyaline Casts 0-2 H /LPF Urine Mucus NEGATIVE /LPF Urine Culture Indicated NO Urine Opiates Screen NEGATIVE NEGATIVE Urine Oxycodone Screen NEGATIVE NEGATIVE Urine Methadone Screen NEGATIVE NEGATIVE Urine Propoxyphene Screen NEGATIVE NEGATIVE Urine Barbiturates Screen NEGATIVE NEGATIVE Ur Tricyclic Antidepressants Screen NEGATIVE NEGATIVE Urine Phencyclidine Screen NEGATIVE NEGATIVE Urine Amphetamines Screen NEGATIVE NEGATIVE Urine Methamphetamines Screen NEGATIVE NEGATIVE Urine Benzodiazepines Screen NEGATIVE NEGATIVE Urine Cocaine Screen NEGATIVE NEGATIVE Urine Cannabinoids Screen NEGATIVE NEGATIVE My Orders Orders - ROSA ESPINAL Cbc With Automated Diff (01/12/18 07:29) Comprehensive Metabolic Panel (01/12/18 07:29) Hs C Reactive Protein (01/12/18 07:29) Thyroid Stimulating Hormone (01/12/18 07:30) Ekg Tracing (01/12/18 07:31) Manual Differential (01/12/18 07:40) Chest Pa/Lat (2 View) (01/12/18 08:55) Drug Screen Stat (Urine) (01/12/18 08:55) Ua Culture If Indicated (01/12/18 08:55) Ondansetron Injection (Zofran Injectio (01/12/18 09:04) Ketorolac Injection (Toradol Injection) (01/12/18 09:04) Vital Signs/I&O 01/12/18 07:31 Temp 98.9 Pulse 89 Resp 18 B/P (MAP) 126/82 (97) Pulse Ox 98 O2 Delivery Room Air Capillary Refill : Progress Note #1: Time: 07:35 Progress Note Sounds of a panic attack. No focal area of infection. We'll get an EKG, basic lab draw. Monitor and observe him. His fingers did appear a little cool to touch and pale which could coincide with an undiagnosed Rinade's phenomenon versus panic attack. Progress Note #2: Time: 08:57 Progress Note Patient does give a history of working on the sun quite a bit lately and little dehydrated appearing. He is tolerating by mouth fluids so we are going obtain a urinalysis and chest x-ray to rule out any other obvious source of his leukocytosis other than just dehydration. We'll give him a day off and some to drink at home such as sports drinks and return precautions. He does have a primary care doctor he can follow-up with. Progress Note #3: Time: 10:37 Progress Note Patient's feeling better. Resting. No further focal complaints or pain. His TSH and other laboratory examinations including urine and chest x-ray were unremarkable sore going to allow him to go home rest drink sports drinks and follow-up the next week or so with Mrs. Fuentes. Diagnostic Imaging Diagonstic Imaging: Xray Plain Films/CT/US/NM/MRI: chest (2v) Comments NAME: ROSALINA ARROYO [facility] REC#: [id number] PHYSICIAN: ROSA ESPINAL MD CC: NADER LAFLEUR MD; ROSA ESPINAL Page 1 of 1 RADIOLOGY REPORT VIA [place], [place] CC: NADER LAFLEUR MD; ROSA ESPINAL Page 1 of 1 RADIOLOGY REPORT NAME: ROSALINA ARROYO [facility] REC#: [id number] PT STATUS: REG ER : 1970 PHYSICIAN: ROSA ESPINAL MD ADMIT DATE: 01/12/18/ER Signed Date of Exam: 01/12/18 CHEST PA/LAT (2 VIEW) INDICATION: Syncope. Weakness Two views show normal heart size and vascularity. The lungs are clear. There is no effusion or pneumothorax. There is no bony abnormality. IMPRESSION: Normal chest with no change from 05/09/2011. Dictated by: Dictated on workstation # [id number] Dict: 01/12/18914 Trans: 01/12/18928 Interpreted by: NADER LAFLEUR MD Electronically signed by: NADER LAFLEUR MD 01/12/18928 Reviewed: Reviewed by Me Departure Impression Primary Impression: Pre-syncope Additional Impression: Leukocytosis Qualified Codes: D72.829 - Elevated white blood cell count, unspecified Disposition: HOME, SELF-CARE Condition: Stable Departure-Patient Inst. Decision time for Depature: 10:39 Referrals: BRE LOBO MD (PCP/Family) Primary Care Physician Patient Instructions: Syncope (Fainting) (DC) Add. Discharge Instructions: Drink plenty of fluids especially sports drinks such as Gatorade or Powerade. Get some rest today. Don't work until tomorrow at the earliest. Follow-up with your primary care provider in the next one-two weeks to discuss your high white count and symptoms. Return to the ER to begin to have fevers chills nausea vomiting chest pain or shortness of breath. All discharge instructions reviewed with patient and/or family. Voiced understanding. Copy Copies To 1: BRE LOBO MD, TITUS J Jan 12, 2018 07:36
[2018-01-12 07:47] LABS: BASOPHILS % (AUTO) 0 % (0-10); EOSINOPHILS % (AUTO) 0 % (0-10); HEMATOCRIT 43 % (40-54); HEMOGLOBIN 14.9 G/DL (13.3-17.7); LYMPHOCYTES # (AUTO) 0.9 X 10^3 (1.0-4.0); LYMPHOCYTES % (AUTO) 5 % (12-44); MEAN CORPUSCULAR HEMOGLOBIN 29 PG (25-34); MEAN CORPUSCULAR HGB CONC 34 G/DL (32-36); MEAN CORPUSCULAR VOLUME 85 FL (80-99); MEAN PLATELET VOLUME 10.1 FL (7.4-10.4); MONOCYTES # (AUTO) 0.6 X 10^3 (0.0-1.0); MONOCYTES % (AUTO) 4 % (0-12); NEUTROPHILS # (AUTO) 15.5 X 10^3 (1.8-7.8); NEUTROPHILS % (AUTO) 91 % (42-75); PLATELET COUNT 254 10^3/uL (130-400); RED BLOOD COUNT 5.11 10^6/uL (4.35-5.85); RED CELL DISTRIBUTION WIDTH 13.8 % (10.0-14.5); WHITE BLOOD COUNT 17.1 10^3/uL (4.3-11.0)
[2018-01-12 08:04] LABS: ALANINE AMINOTRANSFERASE 18 U/L (0-55); ALKALINE PHOSPHATASE 101 U/L (40-136); BILIRUBIN,TOTAL 1.2 MG/DL (0.1-1.0); BUN/CREATININE RATIO 10; CALCIUM 8.8 MG/DL (8.5-10.1); CARBON DIOXIDE 23 MMOL/L (21-32); CHLORIDE 102 MMOL/L (98-107); CREATININE SERUM 1.05 MG/DL (0.60-1.30); GFR ESTIMATED > 60; GLUCOSE 160 MG/DL (70-105); SODIUM 135 MMOL/L (135-145); TOTAL PROTEIN 6.6 GM/DL (6.4-8.2)
[2018-01-12 08:20] LABS: BAND NEUTROPHILS 4 %; LYMPHOCYTES % (MANUAL) 5 %; MONOCYTES % (MANUAL) 4 %; NEUTROPHILS % (MANUAL) 91 %; RBC MORPH NORMAL
[2018-01-12] MEDS ORDERED: ONDANSETRON 4 MG/2 ML (SDV) Z0FRAN ONE (09:04)
[2018-01-12] MEDS ORDERED: KETOROLAC 30 MG/ML VIAL ONE (09:04)
--- NOTE | 2018-01-12 09:21 | Diagnostic Imaging Report ---
INDICATION: Syncope. Weakness Two views show normal heart size and vascularity. The lungs are clear. There is no effusion or pneumothorax. There is no bony abnormality. IMPRESSION: Normal chest with no change from 05/09/2011. Dictated by: Dictated on workstation # [id number]
[2018-01-12 09:32] LABS: BILIRUBIN,URINE NEGATIVE (NEGATIVE); CLARITY,URINE CLEAR; COLOR,URINE YELLOW; GLUCOSE, URINE (UA) NEGATIVE (NEGATIVE); KETONES,URINE NEGATIVE (NEGATIVE); LEUKOCYTE ESTERASE ,URINE NEGATIVE (NEGATIVE); NITRITE,URINE NEGATIVE (NEGATIVE); PH,URINE 7 (5-9); PROTEIN,URINE 1+ (NEGATIVE); UROBILINOGEN,URINE NORMAL (NORMAL)
[2018-01-12 09:41] LABS: BACTERIA,URINE NEGATIVE /HPF; HYALINE CASTS, URINE 0-2 /LPF; WBC,URINE 0-2 /HPF
[2018-01-12 09:47] LABS: AMPHETAMINE SCREEN, URINE NEGATIVE (NEGATIVE); BARBITURATE SCREEN URINE NEGATIVE (NEGATIVE); BENZODIAZEPINES SCREEN URINE NEGATIVE (NEGATIVE); CANNABINOID SCREEN, URINE NEGATIVE (NEGATIVE); COCAINE SCREEN URINE NEGATIVE (NEGATIVE); METHADONE STAT NEGATIVE (NEGATIVE); METHAMPHETAMINE SCREEN URINE S NEGATIVE (NEGATIVE); OPIATE SCREEN URINE NEGATIVE (NEGATIVE); OXYCODONE STAT NEGATIVE (NEGATIVE); PROPOXYPHENE STAT NEGATIVE (NEGATIVE); TRICYCLIC ANTIDEPRESSANTS SCRE NEGATIVE (NEGATIVE)
[2018-01-12 10:47] VITALS: BP 117/80
== END 2018-01-12 10:43 | disposition home or self-care (01) ==
LOC: EDUNIT# 07:16 → ER 07:21
DX: R55 Syncope and collapse (principal); D72.829 Elevated white blood cell count, unspecified; K21.9 Gastro-esophageal reflux disease without esophagitis; Z86.73 Personal history of transient ischemic attack (TIA), and cerebral infarction without residual deficits; Z87.442 Personal history of urinary calculi
CPT/HCPCS: 36415; 71046; 80053; 80306; 81000; 84443; 85007; 85027; 86141; 93005

== ENCOUNTER 2018-06-05 07:36 | Observation (INO) | payer MEDICARE, MEDICAID ==
[~2018-06-05] VITALS: Ht 165.1 cm; Wt 75.1 kg
[~2018-06-05 07:36] MED LIST changes: -OXYC-202 PO; +OXYC1TAB12 PO
[2018-06-05] MEDS ORDERED: NS IV 1000 ML 1,000 ML IV ONE (07:43)
[2018-06-05 07:46] VITALS: BP_SYST 130; BP_SYST 133; BP_SYST 134; BP_DIAS 103; BP_DIAS 89; BP_DIAS 96
--- OUTSIDE RECORDS SUMMARY | 2018-06-05 07:46 | XMS REPORT | Clinical Summary ---
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 If you do not see the information that you expected, contact Release of Information in the Health Information Management department at [phone] for further assistance in locating additional records.[facility] Allergies No Known Allergies Medications End Date Status Medication Sig Dispensed Refills Start Date Active vitamins, B complex tab Take 1 Tab by 0 mouth daily. Active CA COMB NO.1/VIT Take by 0 D3/B-6/FA/B12 (HEARTBURN mouth. 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 Family History Medical History Relation Name Comments Diabetes Maternal Aunt Diabetes Maternal Grandfather Hypertension Maternal Grandfather Glaucoma Maternal Grandmother Neurologic Disorder Maternal Parkinson's Grandmother Diabetes Maternal Uncle Cancer Maternal Uncle Thyroid Disease Mother Diabetes Other MGGM Amblyopia Neg Hx Autoimmune Disease Neg Hx Blindness Neg Hx Cataract Neg Hx Coronary Artery Disease Neg Hx Macular Degen Neg Hx Retinal Detachment Neg Hx Strabismus Neg Hx Stroke Neg Hx Relation Name Status Comments Maternal Aunt Maternal Grandfather Maternal Grandmother Maternal Uncle Maternal Uncle Mother Other MGGM Social History Date Tobacco Use Types Packs/Day Years Used Never Smoker Alcohol Use Drinks/Week oz/Week Comments No 0 Standard 0.0 drinks or equivalent Sex Assigned at Date Recorded Not on file Industry Job Start Date Occupation Not on file Not on file Not on file Travel End Travel History Travel Start No recent travel history available. Last Filed Vital Signs Time Taken Vital Sign Reading 12/16/2014 3:27 PM CDT Blood Pressure 141/94 12/16/2014 3:27 PM CDT Pulse 79 - Temperature - - Respiratory Rate - - Oxygen Saturation - - Inhaled Oxygen - Concentration 12/16/2014 3:27 PM CDT Weight 65.8 kg (145 lb) 12/16/2014 3:27 PM CDT Height 162.6 cm (5' 4") 12/16/2014 3:27 PM CDT Body Mass Index 24.89 Plan of Treatment Health Maintenance Due Date Last Done Comments PHYSICAL (COMPREHENSIVE) 10/13/1979 EXAM HIV SCREENING 10/13/1987 DTAP/TDAP VACCINES ( - 1990 Tdap) INFLUENZA VACCINE 01/08/2018 Results Not on filefrom Last 3 Months
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
[2018-06-05 07:54] LABS: BASOPHILS % (AUTO) 0 % (0-10); EOSINOPHILS % (AUTO) 0 % (0-10); HEMATOCRIT 43 % (40-54); HEMOGLOBIN 14.6 G/DL (13.3-17.7); LYMPHOCYTES # (AUTO) 0.8 X 10^3 (1.0-4.0); LYMPHOCYTES % (AUTO) 7 % (12-44); MEAN CORPUSCULAR HEMOGLOBIN 29 PG (25-34); MEAN CORPUSCULAR HGB CONC 34 G/DL (32-36); MEAN CORPUSCULAR VOLUME 85 FL (80-99); MEAN PLATELET VOLUME 10.4 FL (7.4-10.4); MONOCYTES # (AUTO) 0.7 X 10^3 (0.0-1.0); MONOCYTES % (AUTO) 6 % (0-12); NEUTROPHILS % (AUTO) 87 % (42-75); PLATELET COUNT 247 10^3/uL (130-400); RED BLOOD COUNT 4.99 10^6/uL (4.35-5.85); RED CELL DISTRIBUTION WIDTH 13.5 % (10.0-14.5); WHITE BLOOD COUNT 12.6 10^3/uL (4.3-11.0)
[2018-06-05 08:19] LABS: ALANINE AMINOTRANSFERASE 18 U/L (0-55); ALBUMIN 3.9 GM/DL (3.2-4.5); ALKALINE PHOSPHATASE 96 U/L (40-136); BILIRUBIN,TOTAL 0.9 MG/DL (0.1-1.0); BUN/CREATININE RATIO 11; CALCIUM 8.3 MG/DL (8.5-10.1); CARBON DIOXIDE 21 MMOL/L (21-32); CHLORIDE 106 MMOL/L (98-107); CREATININE SERUM 0.91 MG/DL (0.60-1.30); GFR ESTIMATED > 60; GLUCOSE 113 MG/DL (70-105); MAGNESIUM 1.9 MG/DL (1.8-2.4); POTASSIUM 3.6 MMOL/L (3.6-5.0); SODIUM 139 MMOL/L (135-145); TOTAL PROTEIN 6.5 GM/DL (6.4-8.2)
--- NOTE | 2018-06-05 08:25 | Diagnostic Imaging Report ---
INDICATION: Dizziness. Syncope. COMPARISON: 01/12/2018. FINDINGS: Single frontal view of the chest demonstrates normal heart size and pulmonary vascularity. The lungs are well aerated and clear. No large pleural effusion or pneumothorax is seen. The visualized osseous structures show no acute abnormalities. IMPRESSION: 1. No acute cardiopulmonary process. Dictated by: Dictated on workstation # [id number]
--- NOTE | 2018-06-05 08:28 | NUR ---
PT NOTIFIED WE NEEDED A URINE SAMPLE.
[2018-06-05 08:39] LABS: FREE T4 (FREE THYROXINE) 1.01 NG/DL (0.70-1.48)
[2018-06-05 08:41] LABS: BILIRUBIN,URINE NEGATIVE (NEGATIVE); CLARITY,URINE CLEAR; COLOR,URINE YELLOW; GLUCOSE, URINE (UA) NEGATIVE (NEGATIVE); KETONES,URINE NEGATIVE (NEGATIVE); LEUKOCYTE ESTERASE ,URINE NEGATIVE (NEGATIVE); NITRITE,URINE NEGATIVE (NEGATIVE); PH,URINE 7 (5-9); PROTEIN,URINE NEGATIVE (NEGATIVE); UROBILINOGEN,URINE NORMAL (NORMAL)
[2018-06-05 08:50] LABS: BAND NEUTROPHILS 0 %; BASOPHILS % (MANUAL) 0 %; EOSINOPHILS % (MANUAL) 0 %; LYMPHOCYTES % (MANUAL) 7 %; MONOCYTES % (MANUAL) 4 %; NEUTROPHILS % (MANUAL) 89 %; RBC MORPH NORMAL
[2018-06-05 08:51] LABS: BACTERIA,URINE NEGATIVE /HPF
[2018-06-05 08:56] LABS: AMPHETAMINE SCREEN, URINE NEGATIVE (NEGATIVE); BARBITURATE SCREEN URINE NEGATIVE (NEGATIVE); BENZODIAZEPINES SCREEN URINE NEGATIVE (NEGATIVE); CANNABINOID SCREEN, URINE NEGATIVE (NEGATIVE); COCAINE SCREEN URINE NEGATIVE (NEGATIVE); METHADONE STAT NEGATIVE (NEGATIVE); METHAMPHETAMINE SCREEN URINE S NEGATIVE (NEGATIVE); OPIATE SCREEN URINE NEGATIVE (NEGATIVE); OXYCODONE STAT NEGATIVE (NEGATIVE); PROPOXYPHENE STAT NEGATIVE (NEGATIVE); TRICYCLIC ANTIDEPRESSANTS SCRE NEGATIVE (NEGATIVE)
--- NOTE | 2018-06-05 09:53 | ED Syncope ---
General Chief Complaint: Dizziness/Syncope Stated Complaint: SYNCOPE Nursing Triage Note: ARRIVED VIA EMS FROM HOME. STATES HE WENT TO BED AROUND 0315 THIS AM ET GOT UP AROUND 0700 AND PASSED OUT. UNKNKOWN IF HE HIT HIS HEAD ET DENIES BEING ON BLOOD THINNERS. Source of Information: Patient, EMS, Old Records Exam Limitations: No Limitations History of Present Illness Date Seen by Provider: Jun 05, 2018 Time Seen by Provider: 07:42 Initial Comments This 47-year-old man presents to the emergency room via EMS after having a syncopal episode in his home. [place] and around 03 :15 began to feel very hot, especially flushed in his ears. He presumed his blood pressure to be up. He felt short of breath during that episode. He returned home and went to bed. Upon waking up this morning he felt dizzy. He began walking out of his room and collapse. Family reported he was unresponsive for them. There were no convulsions and no loss of urine. Patient had a similar episode in January when he had a near syncopal episode with a similar prodrome. Patient sees Soni Fuentes. He reports he has history of a thyroid mass which is supposed to be followed every 3 months. He reports he has not had it checked on in about a year. Patient also has a history of coronary artery disease. He had a stent placed by Dr. Ponce in 2011. He denies any alcohol, tobacco, or drug use. EMS reports fingerstick blood sugar was 147. Patient denies any injury with his fall. He has no pain. He is alert and oriented at this time. Review of chart notes a negative stress test in 2017. He has no focal neurologic complaints. Allergies and Home Medications Allergies Coded Allergies: No Known Drug Allergies (Unverified , 07/09/17) Home Medications Diphenhydramine HCl 25 Mg Capsule, 25 MG PO DAILY, (Reported) Ibuprofen 800 Mg Tablet, 800 MG PO Q8H PRN for PAIN-MILD, (Reported) Montelukast Sodium 10 Mg Tablet, 10 MG PO DAILY, (Reported) Omeprazole 20 Mg Tablet.dr, 20 MG PO DAILY, (Reported) Patient Home Medication List Home Medication List Reviewed: Yes Review of Systems Constitutional: no symptoms reported EENTM: no symptoms reported Respiratory: no symptoms reported Cardiovascular: see HPI Gastrointestinal: no symptoms reported Genitourinary: no symptoms reported Musculoskeletal: no symptoms reported Skin: no symptoms reported Psychiatric/Neurological: No Symptoms Reported Past Fjavxob-Tkshka-Palned Hx Past Med/Social Hx: Reviewed and Corrections made Patient Social History Recent Foreign Travel: No Contact w/Someone Who Travel: No Recent Infectious Disease Expo: No Recent Hopitalizations: No Immunizations Up To Date Tetanus Booster (TDap): Unknown Seasonal Allergies Seasonal Allergies: Yes Past Medical History Surgeries: Yes (Gall Bladder`removed) Coronary Stent, Gallbladder Respiratory: No Cardiac: Yes (MITRAL VALVE PROLAPSE) Coronary Artery Disease, Valvular Heart Disease 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) Stroke Reproductive Disorders: No Sexually Transmitted Disease: No HIV/AIDS: No Genitourinary: Yes Prostate Problems, Kidney Stones Gastrointestinal: Yes Gastroesophageal Reflux Musculoskeletal: No Endocrine: Yes (THYROID NODULE) Loss of Vision: Right Hearing Impairment: Denies Cancer: No Psychosocial: No Integumentary: No Blood Disorders: No Adverse Reaction/Blood Tranf: No (N/A) Physical Exam Vital Signs Vital Signs - First Documented 06/05/18 07:36 Temp 98.2 Pulse 78 Resp 16 B/P (MAP) 134/89 (104) Pulse Ox 100 O2 Delivery Room Air Capillary Refill : Less Than 3 Seconds Height, Weight, BMI Height: 5'4.00" Weight: 160lbs. 8.0oz. 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 Norm as Tested Cranial Nerves: Normal Hearing, Normal Speech, PERRL Coordination/Gait: Normal Gait Motor/Sensory: No Motor Deficit, No Sensory Deficit Skin: Normal Color, Warm/Dry Progress/Results/Core Measures Results/Orders Lab Results Laboratory Tests Test 06/05/18 07:40 06/05/18 08:33 Range/Units White Blood Count 12.6 H 4.3-11.0 10^3/uL Red Blood Count 4.99 4.35-5.85 10^6/uL Hemoglobin 14.6 13.3-17.7 G/DL Hematocrit 43 40-54 % Mean Corpuscular Volume 85 80-99 FL Mean Corpuscular Hemoglobin 29 25-34 PG Mean Corpuscular Hemoglobin Concent 34 32-36 G/DL Red Cell Distribution Width 13.5 10.0-14.5 % Platelet Count 247 130-400 10^3/uL Mean Platelet Volume 10.4 7.4-10.4 FL Neutrophils (%) (Auto) 87 H 42-75 % Lymphocytes (%) (Auto) 7 L 12-44 % Monocytes (%) (Auto) 6 0-12 % Eosinophils (%) (Auto) 0 0-10 % Basophils (%) (Auto) 0 0-10 % Neutrophils # (Auto) 11.0 H 1.8-7.8 X 10^3 Lymphocytes # (Auto) 0.8 L 1.0-4.0 X 10^3 Monocytes # (Auto) 0.7 0.0-1.0 X 10^3 Eosinophils # (Auto) 0.0 0.0-0.3 10^3/uL Basophils # (Auto) 0.0 0.0-0.1 10^3/uL Neutrophils % (Manual) 89 % Lymphocytes % (Manual) 7 % Monocytes % (Manual) 4 % Eosinophils % (Manual) 0 % Basophils % (Manual) 0 % Band Neutrophils 0 % Blood Morphology Comment NORMAL Sodium Level 139 135-145 MMOL/L Potassium Level 3.6 3.6-5.0 MMOL/L Chloride Level 106 98-107 MMOL/L Carbon Dioxide Level 21 21-32 MMOL/L Anion Gap 12 5-14 MMOL/L Blood Urea Nitrogen 10 7-18 MG/DL Creatinine 0.91 0.60-1.30 MG/DL Estimat Glomerular Filtration Rate > 60 BUN/Creatinine Ratio 11 Glucose Level 113 H 70-105 MG/DL Calcium Level 8.3 L 8.5-10.1 MG/DL Corrected Calcium 8.4 L 8.5-10.1 MG/DL Magnesium Level 1.9 1.8-2.4 MG/DL Total Bilirubin 0.9 0.1-1.0 MG/DL Aspartate Amino Transf (AST/SGOT) 29 5-34 U/L Alanine Aminotransferase (ALT/SGPT) 18 0-55 U/L Alkaline Phosphatase 96 40-136 U/L Troponin I < 0.30 <0.30 NG/ML Total Protein 6.5 6.4-8.2 GM/DL Albumin 3.9 3.2-4.5 GM/DL Thyroid Stimulating Hormone (TSH) 1.45 0.35-4.94 UIU/ML Free Thyroxine 1.01 0.70-1.48 NG/DL Serum Alcohol < 10 <10 MG/DL Urine Color YELLOW Urine Clarity CLEAR Urine pH 7 5-9 Urine Specific [place] 1.005 L 1.016-1.022 Urine Protein NEGATIVE NEGATIVE Urine Glucose (UA) NEGATIVE NEGATIVE Urine Ketones NEGATIVE NEGATIVE Urine Nitrite NEGATIVE NEGATIVE Urine Bilirubin NEGATIVE NEGATIVE Urine Urobilinogen NORMAL NORMAL MG/DL Urine Leukocyte Esterase NEGATIVE NEGATIVE Urine RBC (Auto) NEGATIVE NEGATIVE Urine RBC NONE /HPF Urine WBC NONE /HPF Urine Squamous Epithelial Cells NONE /HPF Urine Crystals NONE /LPF Urine Bacteria NEGATIVE /HPF Urine Casts NONE /LPF Urine Mucus NEGATIVE /LPF Urine Culture Indicated NO Urine Opiates Screen NEGATIVE NEGATIVE Urine Oxycodone Screen NEGATIVE NEGATIVE Urine Methadone Screen NEGATIVE NEGATIVE Urine Propoxyphene Screen NEGATIVE NEGATIVE Urine Barbiturates Screen NEGATIVE NEGATIVE Ur Tricyclic Antidepressants Screen NEGATIVE NEGATIVE Urine Phencyclidine Screen NEGATIVE NEGATIVE Urine Amphetamines Screen NEGATIVE NEGATIVE Urine Methamphetamines Screen NEGATIVE NEGATIVE Urine Benzodiazepines Screen NEGATIVE NEGATIVE Urine Cocaine Screen NEGATIVE NEGATIVE Urine Cannabinoids Screen NEGATIVE NEGATIVE My Orders Orders - ZAIRE HANDY MD Alcohol (06/05/18 07:43) Cbc With Automated Diff (06/05/18 07:43) Comprehensive Metabolic Panel (06/05/18 07:43) Drug Screen Stat (Urine) (06/05/18 07:43) Magnesium (06/05/18 07:43) Thyroid Stimulating Hormone (06/05/18 07:43) Troponin I (06/05/18 07:43) Ua Culture If Indicated (06/05/18 07:43) Saline Lock/Iv-Start (06/05/18 07:43) Ekg Tracing (06/05/18 07:43) Monitor-Rhythm Ecg Trace Only (06/05/18 07:43) Chest 1 View, Ap/Pa Only (06/05/18 07:43) Ns Iv 1000 Ml (Sodium Chloride 0.9%) (06/05/18 07:43) Free T4 (Free Thyroxine) (06/05/18 07:43) Orthostatic Vital Signs (Adult (06/05/18 07:43) Manual Differential (06/05/18 07:40) Medications Given in ED Vital Signs/I&O 06/05/18 06/05/18 07:36 07:46 Temp 98.2 Pulse 78 90 94 107 Resp 16 B/P (MAP) 134/89 (104) 134/89 (104) 133/103 (113) 130/96 (107) Pulse Ox 100 O2 Delivery Room Air Blood Pressure Mean: 107 Progress Progress Note : Progress Note Workup was unremarkable except for mild leukocytosis. He has had a finding of leukocytosis without infection in the past. Orthostatic blood pressures were unremarkable. Patient received a liter of IV fluid. This slowed his heart rate some. I discussed disposition with the patient. He really feels uncomfortable returning home at this time. I discussed the case with Dr. Donald who agrees admission for observation is the best plan at this time. He has been stable since arrival and is able to ambulate without difficulty. He has had no cardiac events or arrhythmias noted. Initial ECG Impression Date: Jun 05, 2018 Initial ECG Impression Time: 07:50 Initial ECG Rate: 80 Initial ECG Rhythm: Normal Sinus Comment Normal sinus rhythm with no ST elevation or depression. No abnormal intervals. Left axis deviation by automated read. Diagnostic Imaging Diagonstic Imaging: Xray Plain Films/CT/US/NM/MRI: chest Comments Chest x-ray viewed by me and report reviewed. See report below: NAME: ROSALINA ARROYO [facility] REC#: [id number] PT STATUS: REG ER : 1970 PHYSICIAN: ZAIRE HANDY MD ADMIT DATE: 06/05/18/ER Draft Date of Exam:06/05/18 CHEST 1 VIEW, AP/PA ONLY INDICATION: Dizziness. Syncope. COMPARISON: 01/12/2018. FINDINGS: Single frontal view of the chest demonstrates normal heart size and pulmonary vascularity. The lungs are well aerated and clear. No large pleural effusion or pneumothorax is seen. The visualized osseous structures show no acute abnormalities. IMPRESSION: 1. No acute cardiopulmonary process. Dictated on workstation # [id number] Dict: 06/05/18820 Trans: 06/05/18823 [facility] [id number] Interpreted by: SHAR OSMAN MD Departure Communication (Admissions) Time/Spoke to Admitting Phy: 09:45 Dr. Cuellar Time/Spoke to Consulting Phy: 09:40 Dr. Donald Impression Primary Impression: Syncope and collapse Disposition: ADMITTED INPATIENT Condition: Improved Admissions Decision to Admit Reason: Admit from ER (General) Decision to Admit/Date: Jun 05, 2018 Time/Decision to Admit Time: 09:40 Departure-Patient Inst. Referrals: BRE LOBO MD (PCP/Family) Primary Care Physician ZAIRE HANDY MD Jun 05, 2018 09:53
--- NOTE | 2018-06-05 10:29 | NUR ---
ATTEMPT TO CALL REPORT TO NURSE. NURSE UNAVAILABLE ET WILL CALL BACK FOR REPORT.
--- OUTSIDE RECORDS SUMMARY | 2018-06-05 10:43 | XMS REPORT | Clinical Summary ---
Author Author [facility] Organization [facility] Address Unknown Phone Unavailable Care Team Providers Care Director Of People Name Role Phone Zac Aguilar MD Unavailable Source Comments Some departments are not documenting in the electronic medical record. If you do not see the information that you expected, contact Release of Information in the Health Information Management department at [phone] for further assistance in locating additional records.[facility] Allergies No Known Allergies Medications End [...]
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
[2018-06-05 11:00] VITALS: BP 124/88
[2018-06-05 11:15] VITALS: BP 124/88
[2018-06-05] MEDS ORDERED: ONDANSETRON 4 MG/2 ML (SDV) Z0FRAN IV PRN (11:30)
[2018-06-05] MEDS ORDERED: CATHETER FLUSH 10 ML SYR IV PRN (11:30)
[2018-06-05] MEDS: NS IV 1000 ML 1,000 ML IV SCH ×2 (11:51→20:02)
--- NOTE | 2018-06-05 13:07 | Consultation-Cardiology ---
HPI-Cardiology Cardiology Consultation Date of Consultation 06/05/18 Date of Admission Time Seen by Provider: 13:04 Indication: syncope HPI 47 years old gentleman with history of cardiac catheterization done in 2008 for recurrent chest pain, was normal. Was in his usual state of health, [place] 3 in the [place]. Came home and felt tired felt hot. Workup in the morning and had a syncopal episode brought to the hospital by EMS. He is feeling better, having some tightness in his chest. No palpitation. Has been having syncopal episodes in the past. Home Medications & Allergies Allergies: Coded Allergies: No Known Drug Allergies (Unverified , 07/09/17) Home Medication List Reviewed: Yes SWE-Kdouni-Jftjun Hx Patient Social History Marital Status: single Recent Foreign Travel: No Recent Infectious Disease Expo: No Recent Hopitalizations: No Immunizations Up To Date Tetanus Booster (TDap): Unknown Past Medical History Past medical history as described below Family Medical History Family Medical Hx Noncontributory to his current condition Review of Systems Constitutional: see HPI, dizziness EENTM: see HPI Respiratory: see HPI; No cough, No dyspnea on exertion, No hemoptysis, No orthopnea, No phlegm, No short of breath, No stridor, No wheezing, No other Cardiovascular: see HPI; No chest pain, No edema, No Hx of Intervention, No palpitations; syncope; No vascular heart diseas, No other Gastrointestinal: no symptoms reported, see HPI Genitourinary: no symptoms reported, see HPI Musculoskeletal: no symptoms reported, see HPI Skin: no symptoms reported, see HPI Psychiatric/Neurological: No Symptoms Reported, See HPI Reviewed Test Results Reviewed Test Results Lab Laboratory Tests Test 06/05/18 07:40 06/05/18 08:33 Range/Units White Blood Count 12.6 H 4.3-11.0 10^3/uL Red Blood Count 4.99 4.35-5.85 10^6/uL Hemoglobin 14.6 13.3-17.7 G/DL Hematocrit 43 40-54 % Mean Corpuscular Volume 85 80-99 FL Mean Corpuscular Hemoglobin 29 25-34 PG Mean Corpuscular Hemoglobin Concent 34 32-36 G/DL Red Cell Distribution Width 13.5 10.0-14.5 % Platelet Count 247 130-400 10^3/uL Mean Platelet Volume 10.4 7.4-10.4 FL Neutrophils (%) (Auto) 87 H 42-75 % Lymphocytes (%) (Auto) 7 L 12-44 % Monocytes (%) (Auto) 6 0-12 % Eosinophils (%) (Auto) 0 0-10 % Basophils (%) (Auto) 0 0-10 % Neutrophils # (Auto) 11.0 H 1.8-7.8 X 10^3 Lymphocytes # (Auto) 0.8 L 1.0-4.0 X 10^3 Monocytes # (Auto) 0.7 0.0-1.0 X 10^3 Eosinophils # (Auto) 0.0 0.0-0.3 10^3/uL Basophils # (Auto) 0.0 0.0-0.1 10^3/uL Neutrophils % (Manual) 89 % Lymphocytes % (Manual) 7 % Monocytes % (Manual) 4 % Eosinophils % (Manual) 0 % Basophils % (Manual) 0 % Band Neutrophils 0 % Blood Morphology Comment NORMAL Sodium Level 139 135-145 MMOL/L Potassium Level 3.6 3.6-5.0 MMOL/L Chloride Level 106 98-107 MMOL/L Carbon Dioxide Level 21 21-32 MMOL/L Anion Gap 12 5-14 MMOL/L Blood Urea Nitrogen 10 7-18 MG/DL Creatinine 0.91 0.60-1.30 MG/DL Estimat Glomerular Filtration Rate > 60 BUN/Creatinine Ratio 11 Glucose Level 113 H 70-105 MG/DL Calcium Level 8.3 L 8.5-10.1 MG/DL Corrected Calcium 8.4 L 8.5-10.1 MG/DL Magnesium Level 1.9 1.8-2.4 MG/DL Total Bilirubin 0.9 0.1-1.0 MG/DL Aspartate Amino Transf (AST/SGOT) 29 5-34 U/L Alanine Aminotransferase (ALT/SGPT) 18 0-55 U/L Alkaline Phosphatase 96 40-136 U/L Troponin I < 0.30 <0.30 NG/ML Total Protein 6.5 6.4-8.2 GM/DL Albumin 3.9 3.2-4.5 GM/DL Thyroid Stimulating Hormone (TSH) 1.45 0.35-4.94 UIU/ML Free Thyroxine 1.01 0.70-1.48 NG/DL Serum Alcohol < 10 <10 MG/DL Urine Color YELLOW Urine Clarity CLEAR Urine pH 7 5-9 Urine Specific [place] 1.005 L 1.016-1.022 Urine Protein NEGATIVE NEGATIVE Urine Glucose (UA) NEGATIVE NEGATIVE Urine Ketones NEGATIVE NEGATIVE Urine Nitrite NEGATIVE NEGATIVE Urine Bilirubin NEGATIVE NEGATIVE Urine Urobilinogen NORMAL NORMAL MG/DL Urine Leukocyte Esterase NEGATIVE NEGATIVE Urine RBC (Auto) NEGATIVE NEGATIVE Urine RBC NONE /HPF Urine WBC NONE /HPF Urine Squamous Epithelial Cells NONE /HPF Urine Crystals NONE /LPF Urine Bacteria NEGATIVE /HPF Urine Casts NONE /LPF Urine Mucus NEGATIVE /LPF Urine Culture Indicated NO Urine Opiates Screen NEGATIVE NEGATIVE Urine Oxycodone Screen NEGATIVE NEGATIVE Urine Methadone Screen NEGATIVE NEGATIVE Urine Propoxyphene Screen NEGATIVE NEGATIVE Urine Barbiturates Screen NEGATIVE NEGATIVE Ur Tricyclic Antidepressants Screen NEGATIVE NEGATIVE Urine Phencyclidine Screen NEGATIVE NEGATIVE Urine Amphetamines Screen NEGATIVE NEGATIVE Urine Methamphetamines Screen NEGATIVE NEGATIVE Urine Benzodiazepines Screen NEGATIVE NEGATIVE Urine Cocaine Screen NEGATIVE NEGATIVE Urine Cannabinoids Screen NEGATIVE NEGATIVE Physical Exam Vital Signs Vital Signs - First Documented 06/05/18 07:36 Temp 98.2 Pulse 78 Resp 16 B/P (MAP) 134/89 (104) Pulse Ox 100 O2 Delivery Room Air Capillary Refill : Less Than 3 Seconds Height, Weight, BMI Height: 5'4.00" Weight: 160lbs. 8.0oz. 72.785652ij; 28.4 BMI Method:Stated General Appearance: No Apparent Distress, WD/WN Eyes: Bilateral Eye Normal Inspection, Bilateral Eye PERRL, Bilateral Eye EOMI HEENT: PERRL/EOMI, TMs Normal, Normal ENT Inspection, Pharynx Normal Neck: Full Range of Motion, Normal Inspection, Non Tender, Supple, Carotid Bruit Respiratory: Chest Non Tender, Lungs Clear, Normal Breath Sounds, No Accessory Muscle Use, No Respiratory Distress Cardiovascular: Regular Rate, Rhythm, No Edema, No Gallop, No JVD, No Murmur, Normal Peripheral Pulses Gastrointestinal: Normal Bowel Sounds, No Organomegaly, No Pulsatile Mass, Non Tender, Soft Back: Normal Inspection, No CVA Tenderness, No Vertebral Tenderness Extremity: Normal Capillary Refill, Normal Inspection, Normal Range of Motion, Non Tender, No Calf Tenderness, No Pedal Edema Neurologic/Psychiatric: Alert, Oriented x3, No Motor/Sensory Deficits, Normal Mood/Affect Skin: Normal Color, Warm/Dry Lymphatic: No Adenopathy A/P-Cardiology Admission Diagnosis Syncope Chest pain Hypertension Kidney stones Assessment/Plan Syncope probably vasovagal in addition to dehydration. Continue to monitor, continue with IV fluid, planning to evaluate echocardiogram Chest pain nonspecific etiology, atypical in presentation. Had a cardiac catheter done 9 years ago and it was normal. Hypertension, blood pressure is better at this time. Continue to monitor History of kidney stones. We'll continue hydrating and monitoring, no changes currently to his medication. ZULEMA THOMPSON MD Jun 05, 2018 13:07
[2018-06-05] MEDS ORDERED: DIPH25CA79 PO (14:25)
--- NOTE | 2018-06-05 14:26 | NUR ---
PATIENT HAD HIS 3 PRESCRIPTION MEDICATION BOTTLES WITH HIM AND VERIFIED HOW HE TAKES THEM. HE STATES HE ALSO HAD BEEN TAKING A BENADRYL EVERY MORNING OTC.
[2018-06-05 15:00] VITALS: BP 138/86
[2018-06-05] MEDS ORDERED: FLU QUADRIvalent (5+ YOA) 2018-2019 (AFLURIA) 0.5 ML IM ONE (15:45)
[2018-06-05 20:00] VITALS: BP 131/98
[2018-06-05 20:11] VITALS: BP 131/98
[2018-06-05] MEDS ORDERED: ALPRAZolam 0.25 MG (XANAX) TAB PO PRN (20:30)
[2018-06-05] MEDS ORDERED: HYDROcodone/APAP 5 MG/325 MG (LORTAB) TAB PO PRN (20:30)
[2018-06-05] MEDS ORDERED: IBUPROFEN 800 MG (MOTRIN) TAB PO PRN (20:30)
[2018-06-05] MEDS ORDERED: ACETAMINOPHEN 500 MG TAB (TYLENOL) PO PRN (20:30)
[2018-06-05] MEDS ORDERED: CALCIUM CARBONATE 500 MG (TUMS) TAB.CHEW PO PRN (20:30)
[2018-06-05] MEDS ORDERED: diphenhydrAMINE 25 MG TAB (BENADRYL) PO PRN (20:30)
[2018-06-05] MEDS ORDERED: ONDANSETRON 4 MG/2 ML (SDV) Z0FRAN IVP PRN (20:30)
[2018-06-05] MEDS ORDERED: DOCUSATE SODIUM 100 MG (COLACE) CAP PO PRN (20:30)
[2018-06-06 03:52] VITALS: BP 101/65
[2018-06-06] MEDS: NS IV 1000 ML 1,000 ML IV SCH ×2 (03:52→12:27)
--- NOTE | 2018-06-06 07:48 | Pulmonary Consultation ---
History of Present Illness History of Present Illness Date of Consultation 06/06/18 07:43 Time Seen by Provider: 07:43 Date of Admission Reason for Visit: syncope History of Present Illness 47yo presented to ED via EMS secondary to acute syncope. Pt had chest tightness prior to syncope. CP is now resolved. He is not requiring oxygen. No prior episodes like this in the past. [place] and flushed. He also became SOB. He went home and went to bed. He denies any alcohol, tobacco, or drug use. blood sugar was 147 per EMS. Patient denies any injury with his fall. Allergies and Home Medications Allergies Coded Allergies: No Known Drug Allergies (Unverified , 07/09/17) Home Medications Diphenhydramine HCl 25 Mg Capsule, 25 MG PO DAILY, (Reported) Ibuprofen 800 Mg Tablet, 800 MG PO Q8H PRN for PAIN-MILD, (Reported) Montelukast Sodium 10 Mg Tablet, 10 MG PO DAILY, (Reported) Omeprazole 20 Mg Tablet.dr, 20 MG PO DAILY, (Reported) Past Hcugbho-Jzmjen-Usamrm Hx Past Med/Social Hx: Reviewed and Corrections made Patient Social History Alcohol Use: Denies Use Recreational Drug Use: No Smoking Status: Never a Smoker Recent Foreign Travel: No Contact w/Someone Who Travel: No Recent Infectious Disease Expo: No Recent Hopitalizations: No Immunizations Up To Date Tetanus Booster (TDap): Unknown Seasonal Allergies Seasonal Allergies: Yes Past Medical History Surgeries: Yes (Gall Bladder`removed) Coronary Stent, Gallbladder Respiratory: No Cardiac: Yes (MITRAL VALVE PROLAPSE) Coronary Artery Disease, Valvular Heart Disease 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) Stroke Reproductive Disorders: No Sexually Transmitted Disease: No HIV/AIDS: No Genitourinary: Yes Prostate Problems, Kidney Stones Gastrointestinal: Yes Gastroesophageal Reflux Musculoskeletal: No Endocrine: Yes (THYROID NODULE) Loss of Vision: Right Hearing Impairment: Denies Cancer: No Psychosocial: No Integumentary: No Blood Disorders: No Adverse Reaction/Blood Tranf: No (N/A) Review of Systems Time Seen by Provider: 07:53 Constitutional: Fever, Chills, Sweats, Weakness, Malaise; No: Other Eyes: No: Pain, Vision change, Conjunctivae inflammation, Eyelid inflammation, Other, Redness ENT: Nose congestion; No: Ear pain, Ear discharge, Nose pain, Nose discharge, Mouth pain, Mouth swelling, Throat pain, Throat swelling, Other Respiratory: Cough, Dry, Shortness of breath, SOB with excertion; No: Wheezing , Hemoptysis, Pleuritic Pain, Sputum, Wheezing, Other Cardiovascular: Chest Pain; No: Palpitations, Orthopnea, Paroxysmal Noc. Dyspnea, Edema, Lt Headedness, Other Gastrointestinal: No: Nausea, Vomiting, Abdominal Pain, Diarrhea, Constipation , Melena, Hematochezia, Other Neurological: Weakness, Incoordination Sepsis Event Evaluation Height, Weight, BMI Height: 5'5.00" Weight: 165lbs. 8.0oz. 75.118646xk; 27.5 BMI Method:Stated Exam Exam Vital Signs Date Time Temp Pulse Resp B/P (MAP) Pulse Ox O2 Delivery O2 Flow Rate FiO2 06/06/18 04:04 Room Air 06/06/18 03:52 99.5 90 18 101/65 (77) 100 Room Air 06/06/18 01:00 85 06/06/18 00:00 98.6 85 15 98 Room Air 06/06/18 00:00 Room Air 06/05/18 21:00 Room Air 06/05/18 20:11 104 131/98 (109) 97 Room Air 06/05/18 20:00 98.1 112 18 131/98 (109) 99 Room Air 06/05/18 20:00 99 Room Air 06/05/18 19:00 103 06/05/18 16:00 Room Air 06/05/18 15:00 79 18 138/86 (103) 100 Room Air 06/05/18 13:03 93 06/05/18 12:00 Room Air 06/05/18 11:15 89 11 124/88 (100) 96 Room Air 06/05/18 11:15 90 06/05/18 11:00 96 Room Air 06/05/18 11:00 99.3 83 14 124/88 (100) 95 Room Air 06/05/18 10:50 98.2 91 16 125/87 (100) 100 06/05/18 07:46 90 134/89 (104) 94 133/103 (113) 107 130/96 (107) I & O 06/06/18 07:00 Intake Total 2140 ml Output Total 1850 ml Balance 290 ml Height & Weight Height: 5'5.00" Weight: 165lbs. 8.0oz. 75.664901vy; 27.5 BMI Method:Stated General Appearance: No Apparent Distress, WD/WN HEENT: PERRL/EOMI, Normal ENT Inspection Neck: Normal Inspection, Non Tender Respiratory: Lungs Clear, Normal Breath Sounds, No Accessory Muscle Use, No Respiratory Distress Cardiovascular: No Murmur, Normal Peripheral Pulses, Tachycardia (regular, sinus) Capillary Refill: Less Than 3 Seconds Extremity: Normal Inspection, No Pedal Edema Neurologic/Psychiatric: Alert, Oriented x3, No Motor/Sensory Deficits, Normal Mood/Affect, campaign consultant II-XII Norm as Tested Skin: Normal Color, Warm/Dry Lymphatic: No Adenopathy Results Lab Laboratory Tests 06/05/18 07:40 Assessment/Plan Assessment/Plan S/p Syncope with CP -Cardiology following Dehydration -IVF HTN Hx of nephrolithiasis Transfer to 4th floor if ok with DEANN Shah DO Jun 06, 2018 07:48
[2018-06-06] MEDS ORDERED: PANTOPRAZOLE 40 MG (PROTONIX) TAB PO SCH (09:00)
[2018-06-06] MEDS ORDERED: MONTELUKAST 10 MG (SINGULAIR) TAB PO SCH (09:00)
[2018-06-06] MEDS ORDERED: diphenhydrAMINE 25 MG TAB (BENADRYL) PO SCH (09:00)
[2018-06-06] MEDS ORDERED: NON-FORMULARY MEDICATION 1 EA EA (Diphenhydramine HCl (Benadryl) 25 MG) PO SCH (09:00)
--- NOTE | 2018-06-06 09:20 | NUR ---
0814 REPORT CALLED TO YOLIE 0900 PATIENT TRANSFERRED TO [facility], PERSONAL ITEMS IN HAND
--- NOTE | 2018-06-06 10:41 | Short Stay Summary-Hospitalist ---
History of Present Illness HPI/Chief Complaint CC: Syncope HPI: This is a 47-year-old white male who presented to the ER after a witnessed syncopal episode. Workup was negative although dehydration suspected giving rise to vasovagal syncope. Cardiology recommended observation patient was placed on court recording monitor closely and had no further events with dizziness or syncope and was discharged home. Source: patient Exam Limitations: no limitations Date Seen 06/06/18 Time Seen by a Provider: 10:00 Attending Physician Ricarda Sheridan DO PCP Self,Juan Antonio TRAN Referring Physician Date of Admission Jun 05, 2018 at 10:07 Home Medications & Allergies Home Medications Reviewed patient Home Medication Reconciliation performed by pharmacy medication reconciliations railroad signal technician and/or nursing. Patients Allergies have been reviewed. Allergies Allergies Coded Allergies No Known Drug Allergies (Unverified07/09/17) Past Qmfzffk-Punfng-Lcskbp Hx Past Med/Social Hx: Reviewed Nursing Past Med/Soc Hx, Reviewed and Corrections made Patient Social History Marrital Status: single Alcohol Use: Denies Use Recreational Drug Use: No Smoking Status: Never a Smoker Physical Abuse Screen: No Sexual Abuse: No Recent Foreign Travel: No Contact w/other who traveled: No Recent Hopitalizations: No Recent Infectious Disease Expo: No Immunizations Up To Date Tetanus Booster (TDap): Unknown Seasonal Allergies Seasonal Allergies: Yes Past Medical History Surgeries: Coronary Stent, Gallbladder Cardiac: Coronary Artery Disease, Valvular Heart Disease Neurological: Stroke Reproductive: No Sexually Transmitted Disease: No HIV/AIDS: No Genitourinary: Prostate Problems, Kidney Stones Gastrointestinal: Gastroesophageal Reflux Loss of Vision: Right Hearing Impairment: Denies History of Blood Disorders: No Adverse Reaction to Blood Scanlon: No (N/A) Review of Systems Constitutional: dizziness, weakness EENTM: no symptoms reported Respiratory: no symptoms reported Cardiovascular: syncope Gastrointestinal: no symptoms reported Genitourinary: no symptoms reported Musculoskeletal: no symptoms reported Skin: no symptoms reported Psychiatric/Neurological: No Symptoms Reported All Other Systems Reviewed Negative Unless Noted: Yes Physical Exam Physical Exam Vital Signs Vital Signs - First Documented 06/05/18 07:36 Temp 98.2 Pulse 78 Resp 16 B/P (MAP) 134/89 (104) Pulse Ox 100 O2 Delivery Room Air Capillary Refill : Less Than 3 Seconds Height, Weight, BMI Height: 5'5.00" Weight: 165lbs. 8.0oz. 75.248617sm; 27.5 BMI Method:Stated General Appearance: No Apparent Distress, WD/WN Eyes: Bilateral Eye Normal Inspection, Bilateral Eye PERRL HEENT: PERRL/EOMI, TMs Normal, Normal ENT Inspection, Pharynx Normal Neck: Full Range of Motion, Normal Inspection, Non Tender, Supple, Carotid Bruit Respiratory: Chest Non Tender, Lungs Clear, Normal Breath Sounds, No Accessory Muscle Use, No Respiratory Distress Cardiovascular: Regular Rate, Rhythm, No Edema, No Gallop, No JVD, No Murmur, Normal Peripheral Pulses Gastrointestinal: Normal Bowel Sounds, No Organomegaly, No Pulsatile Mass, Non Tender, Soft Back: Normal Inspection, No CVA Tenderness, No Vertebral Tenderness Extremity: Normal Capillary Refill, Normal Inspection, Normal Range of Motion, Non Tender, No Calf Tenderness, No Pedal Edema Neurologic/Psychiatric: Alert, Oriented x3, No Motor/Sensory Deficits, Normal Mood/Affect Skin: Normal Color, Warm/Dry Lymphatic: No Adenopathy Results Results/Procedures Labs Laboratory Tests 06/05/18 07:40 Patient resulted labs reviewed. Short Stay Diagnosis Discharge Diagnosis-Short Stay Admission Diagnosis Syncope likely vasovagal yype Chronic urticaria CVA hx Final Discharge Diagnosis Syncope likely vasovagal yype Chronic urticaria CVA hx Conclusion Plan DC home Soni Fuentes his primary care provider Diagnosis/Problems Diagnosis/Problems (1) Syncope and collapse Status: Acute (2) Vasovagal episode Status: Acute (3) Urticaria, chronic Status: Chronic (4) Dehydration Status: Acute (5) History of CVA (cerebrovascular accident) Status: Chronic Clinical Quality Measures DVT/VTE Risk/Contraindication: Risk Factor Score Per Nursin RFS Level Per Nursing on Admit: 1=Low/No VTE PPX RICARDA SHERIDAN DO Jun 06, 2018 10:41
--- NOTE | 2018-06-06 11:42 | Cardiology Progress Note ---
Subjective Date Seen by Provider: Jun 06, 2018 Time Seen by Provider: 11:41 Subjective/Events-last exam patient is sitting in a chair, asking to go home, feeling better, no further episodes of dizziness. Review of Systems General: No Chills, No Night Sweats, No Fatigue, No Malaise, No Appetite, No Other HEENT: No Head Aches, No Visual Changes, No Eye Pain, No Ear Pain, No Dysphasia , No Sinus Congestion, No Post Nasal Drip, No Sore Throat, No Other Pulmonary: No Dyspnea, No Cough, No Pleuritic Chest Pain, No Other Cardiovascular: No: Chest Pain, Palpitations, Orthopnea, Paroxysmal Noc. Dyspnea, Edema, Lt Headedness, Other Objective-Cardiology Exam Last Set of Vital Signs Vital Signs 06/06/18 06/06/18 06/06/18 03:52 08:00 11:13 Temp 98.2 Pulse 74 Resp 18 B/P (MAP) 101/65 (77) Pulse Ox 100 O2 Delivery Room Air Capillary Refill : Less Than 3 Seconds I&O Intake and Output 06/06/18 00:00 Intake Total 1540 ml Output Total 1550 ml Balance -10 ml Intake Oral 1540 ml Output Urine Total 1550 ml Daily Weight Change No General: Alert, Oriented X3, Cooperative HEENT: Atraumatic, PERRLA Neck: Supple, No JVD, No Thyromegaly Lungs: Clear to Auscultation, Normal Air Movement Heart: Regular Rate, Normal S1, Normal S2, No Murmurs Abdomen: Normal Bowel Sounds, Soft, No Tenderness, No Hepatosplenomegaly, No Masses Extremities: No Clubbing, No Cyanosis, No Edema, Normal Pulses, No Tenderness/ Swelling Skin: No Rashes, No Breakdown, No Significant Lesion Neuro: Normal Gait, Normal Speech, Strength at 5/5 X4 Ext, Normal Tone, Sensation Intact Psych/Mental Status: Mental Status NL, Mood NL A/P-Cardiology Admission Diagnosis Syncope Chest pain Hypertension Kidney stones Assessment/Plan Syncope probably vasovagal in addition to dehydration. echocardiogram was normal, recommend aggressive hydration, follow-up as an outpatient Chest pain nonspecific etiology, atypical in presentation. Had a cardiac catheter done 9 years ago and it was normal. Hypertension, blood pressure is better at this time. Continue to monitor History of kidney stones. okay for discharge from cardiology standpoint and follow-up as an outpatient Clinical Quality Measures DVT/VTE Risk/Contraindication: Risk Factor Score Per Nursin RFS Level Per Nursing on Admit: 1=Low/No VTE PPX ZULEMA THOMPSON MD Jun 06, 2018 11:42
[2018-06-06 12:27] VITALS: BP 101/65
== END 2018-06-06 12:13 | disposition home or self-care (01) ==
LOC: EDUNIT# 07:36 → ER 07:42 → UNDOADMOB 10:07 → ICU 10:07 → 4TH 06-06 09:05 → UNDODISOB 06-06 12:27
PROVIDERS: ADMIT Internal Medicine; ATTEND Internal Medicine
DX: R55 Syncope and collapse (principal); E86.0 Dehydration; R07.89 Other chest pain; I10 Essential (primary) hypertension; Z87.442 Personal history of urinary calculi; I25.10 Atherosclerotic heart disease of native coronary artery without angina pectoris; Z95.1 Presence of aortocoronary bypass graft; K21.9 Gastro-esophageal reflux disease without esophagitis; I69.398 Other sequelae of cerebral infarction; L50.8 Other urticaria; E04.1 Nontoxic single thyroid nodule; Z79.899 Other long term (current) drug therapy
CPT/HCPCS: 36415; 71045; 80053; 80306; 80320; 81000; 83735; 84439; 84443; 84484; 85007; 85027; 93005; 93041; 93306; 96360

== ENCOUNTER → 2018-07-01 | Outpatient (CLI) | payer MEDICARE, MEDICAID ==
[~2018-07-01] MED LIST changes: +DIPH25CA79 PO
--- NOTE | 2018-07-01 18:14 | Diagnostic Imaging Report ---
INDICATION: Chest pain and hypertension. TIME OF EXAM: 2:24 PM COMPARISON: Correlation is made with prior chest from 06/05/2018. FINDINGS: The heart is enlarged but stable. The lungs are clear. The pulmonary vascularity is unremarkable. No infiltrate, effusion or pneumothorax is seen. IMPRESSION: Stable chest. No acute features detected. Dictated by: Dictated on workstation # [id number]
== END ==
LOC: RAD 13:46
PROVIDERS: ATTEND Internal Medicine Cardiovascular Disease
DX: I10 Essential (primary) hypertension (principal); E78.2 Mixed hyperlipidemia; R07.9 Chest pain, unspecified
CPT/HCPCS: 71046

== ENCOUNTER → 2018-07-31 | Outpatient (CLI) | payer MEDICAID, MEDICARE ==
--- NOTE | 2018-07-31 13:50 | Diagnostic Imaging Report ---
INDICATION: Throat fullness. FINDINGS: Right lobe of the thyroid measures 4.9 x 2.2 x 2.5 cm and the left lobe measures 3.1 x 1.0 x 1.4 cm. Left lobe shows homogeneous echotexture. There appears to be circumscribed solid mass in the right lobe of the thyroid measuring 2.0 x 2.2 x 3.2 cm. This appears to be in the mid to lower pole. No microcalcifications are present. IMPRESSION: Dominant solid mass in right lobe of the thyroid. Patient does report prior history of a thyroid biopsy. Correlation with prior imaging if available would be recommended to evaluate for change in size. If no prior studies or prior information from biopsy is available, repeat fine-needle aspiration of the right thyroid nodule could be performed. Dictated by: Dictated on workstation # [id number]
== END ==
LOC: RAD 12:58
PROVIDERS: ATTEND Nurse Practitioner
DX: E07.89 Other specified disorders of thyroid (principal)
CPT/HCPCS: 76536

== ENCOUNTER → 2018-09-03 | Outpatient (CLI) | payer MEDICARE ==
[~2018-09-03] VITALS: Ht 162.6 cm; Wt 75.7 kg
[~2018-09-03] MED LIST changes: +LIDOCAINE 1% INJ 20 ML 20 ML VIAL INJ ONE
--- NOTE | 2018-09-03 13:50 | Diagnostic Imaging Report ---
INDICATION: Right thyroid nodule. Patient presents for right thyroid nodule biopsy with ultrasound. FINDINGS: Patient was brought to the ultrasound room and placed on the bed in the supine position. Ultrasound imaging of the right neck was performed to evaluate appropriate entry site. The right neck was then prepped and draped in usual sterile fashion. A small amount of 1% lidocaine was utilized for local anesthesia. A total of 4 passes were made into the right thyroid mass with 25-gauge needles. Fine-needle aspiration technique was utilized. Next, 20-gauge Temno needle was advanced into the mass. Core biopsy was obtained. Patient tolerated the procedure well and left the department in stable condition. IMPRESSION: Right thyroid nodule FNA and core biopsy, as described, using ultrasound. Dictated by: Dictated on workstation # [id number]
== END ==
LOC: RAD 10:11
PROVIDERS: ATTEND Nurse Practitioner
DX: E04.1 Nontoxic single thyroid nodule (principal)
CPT/HCPCS: 76942

== ENCOUNTER → 2018-09-14 | Emergency (ER) | payer MEDICARE ==
[~2018-09-14] VITALS: Ht 162.6 cm; Wt 75.7 kg
[~2018-09-14] MED LIST changes: +D-ME118S33 PO; -LIDOCAINE 1% INJ 20 ML 20 ML VIAL INJ ONE
--- OUTSIDE RECORDS SUMMARY | 2018-09-14 17:49 | XMS REPORT | Clinical Summary ---
Author Author [facility] Organization [facility] Address Unknown Phone Unavailable Care Team Providers Care Glass Blowing Lathe Operator Name Role Phone Zac Aguilar MD Unavailable Source Comments Some departments are not documenting in the electronic medical record. If you do not see the information that you expected, contact Release of Information in the Health Information Management department at [phone] for further assistance in locating additional records.[facility] Allergies No Known Allergies Medications End [...] VACCINES ( - 1990 Tdap) INFLUENZA VACCINE 01/08/2019 Results Not on filefrom Last 3 Months
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
--- NOTE | 2018-09-14 18:02 | ED Cough/URI ---
General Chief Complaint: Cough/Cold/Flu Symptoms Stated Complaint: COUGH Nursing Triage Note: pt has been coughing, sneezing, runny nose et congetstion since Saturday. Pt states that when he coughs it is productive. Pt says it all makes his chest burn. Has not taken medication or anything. Sepsis Screen: No Definite Risk Source: patient Exam Limitations: no limitations History of Present Illness Date Seen by Provider: Sep 14, 2018 Time Seen by Provider: 18:01 Initial Comments To ER with reports of coughing sneezing and runny nose for 48 hours. Cough is productive. Fever up to 101 today at noon. Timing/Duration: constant Severity/Quality: productive cough Prior Episodes/Possible Cause: no prior episodes Associated Symptoms: cough Allergies and Home Medications Allergies Coded Allergies: No Known Drug Allergies (Unverified , 07/09/17) Home Medications Diphenhydramine HCl 25 Mg Capsule, 25 MG PO DAILY, (Reported) Ibuprofen 800 Mg Tablet, 800 MG PO Q8H PRN for PAIN-MILD, (Reported) Montelukast Sodium 10 Mg Tablet, 10 MG PO DAILY, (Reported) Omeprazole 20 Mg Tablet.dr, 20 MG PO DAILY, (Reported) Patient Home Medication List Home Medication List Reviewed: Yes Review of Systems Review of Systems Constitutional: see HPI, chills, fever EENTM: see HPI, nose congestion, throat pain Respiratory: see HPI, cough Cardiovascular: no symptoms reported Genitourinary: no symptoms reported Musculoskeletal: no symptoms reported Skin: no symptoms reported Psychiatric/Neurological: No Symptoms Reported Hematologic/Lymphatic: No Symptoms Reported Immunological/Allergic: no symptoms reported Past Tzauceb-Oomdzk-Asaptf Hx Patient Social History Alcohol Use: Denies Use Recreational Drug Use: No Recent Foreign Travel: No Contact w/Someone Who Travel: No Recent Infectious Disease Expo: No Recent Hopitalizations: No Immunizations Up To Date Tetanus Booster (TDap): Unknown Seasonal Allergies Seasonal Allergies: Yes Past Medical History Surgeries: Yes (Gall Bladder`removed) Coronary Stent, Gallbladder Respiratory: No Cardiac: Yes (MITRAL VALVE PROLAPSE) Coronary Artery Disease, Valvular Heart Disease 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 0.0oz. 75.021908sw; 28.7 BMI Method:Stated General Appearance: WD/WN, no apparent distress Eyes: Bilateral Eye Normal Inspection, Bilateral Eye PERRL, Bilateral Eye EOMI HEENT: PERRL/EOMI, normal ENT inspection, TMs normal, pharynx normal Neck: non-tender, full range of motion, lymphadenopathy (R); No lymphadenopathy (L) Respiratory: no respiratory distress, no accessory muscle use Gastrointestinal: normal bowel sounds, non tender, soft Extremities: normal range of motion, non-tender Neurologic/Psychiatric: alert, normal mood/affect Skin: normal color, warm/dry Progress/Results/Core Measures Suspected Sepsis Recent Fever Within 48 Hours: No Infection Criteria Present: None New/Unexplained Altered Menta: No Sepsis Screen: No Definite Risk SIRS Temperature:98.2 Pulse: 96 Respiratory Rate: 20 Blood Pressure 144 /94 Mean: 111 Results/Orders Micro Results Microbiology 09/14/18 Influenza Types A,B Antigen (NETTIE) - Final, Complete My Orders Orders - JIMENEZ STOKES APRN Chest Pa/Lat (2 View) (09/14/18 17:59) Influenza A And B Antigens (09/14/18 17:59) Vital Signs/I&O 09/14/18 09/14/18 17:46 17:53 Temp 98.2 Pulse 96 Resp 20 B/P (MAP) 144/94 (111) Pulse Ox 98 O2 Delivery Room Air Room Air Capillary Refill : Less Than 3 Seconds Blood Pressure Mean: 111 Departure Impression Primary Impression: Bronchitis Disposition: 01 HOME, SELF-CARE Condition: Stable Departure-Patient Inst. Decision time for Depature: 18:31 Referrals: JAVIER RAMEY (PCP/Family) Primary Care Physician Patient Instructions: Cough, Adult (DC) Add. Discharge Instructions: 1. Return to ER for any concerns 2. Follow up with your doctor this week. This is likely viral in nature and an antibiotic will not help speed up recovery from this at this time. All discharge instructions reviewed with patient and/or family. Voiced understanding. Scripts D-Methorphan Hb/P-Epd HCl/Bpm (Bromfed Dm Cough Syrup) 118 Ml Syrup 5 ML PO Q4H PRN for CONGESTION, #120 ML Prov: JIMENEZ STOKES APRN 09/14/18 JIMENEZ STOKES APRN Sep 14, 2018 18:02
--- NOTE | 2018-09-14 18:28 | Diagnostic Imaging Report ---
INDICATION: Cough. COMPARISON STUDY: Chest from July 01. FINDINGS: Frontal and lateral views of the chest demonstrates lungs to be clear. Heart size is mildly enlarged but stable. Vascularity is normal. There are no pleural effusions. Mild degenerative changes are present in the acromioclavicular joints. IMPRESSION: Stable chest with mild cardiomegaly. Dictated by: Dictated on workstation # [id number]
[2018-09-14 18:41] VITALS: BP 137/68
== END | disposition home or self-care (01) ==
LOC: EDUNIT# 17:43 → ER 17:44
DX: J40 Bronchitis, not specified as acute or chronic (principal); I48.91 Unspecified atrial fibrillation; K21.9 Gastro-esophageal reflux disease without esophagitis; Z87.442 Personal history of urinary calculi; Z86.73 Personal history of transient ischemic attack (TIA), and cerebral infarction without residual deficits; Z95.2 Presence of prosthetic heart valve; Z95.5 Presence of coronary angioplasty implant and graft; Z90.49 Acquired absence of other specified parts of digestive tract
CPT/HCPCS: 71046; 87804

== ENCOUNTER 2018-11-13 10:59 | Emergency (ER) | payer MEDICARE ==
[~2018-11-13] VITALS: Ht 162.6 cm; Wt 74.8 kg
[~2018-11-13 10:59] MED LIST changes: -LIDOCAINE 1% INJ 20 ML 20 ML VIAL INJ ONE
--- NOTE | 2018-11-13 11:08 | ED General ---
General Stated Complaint: HYPERTENSION Source of Information: Patient Exam Limitations: No Limitations History of Present Illness Date Seen by Provider: Nov 13, 2018 Time Seen by Provider: 11:05 Initial Comments To ER per stretcher from ultrasound department where he was undergoing ultrasound-guided thyroid biopsy. He been feeling fine this morning, his last core biopsy caused him quite a bit of pain and he suddenly became diaphoretic. He never was hypotensive or bradycardic, they observed him in the department for about 2 hours but his symptoms never improved. He still feels "off". Reports a tight sensation in his neck but he is able to swallow and breathe fine, he's been drinking Sprite. He rates his pain 5 out of 6. Denies any chest pain or shortness of breath. Diaphoresis is improving. Timing/Duration: 1 Hour Severity: Moderate Associated Systoms: Malaise Allergies and Home Medications Allergies Coded Allergies: No Known Drug Allergies (Unverified , 07/09/17) Home Medications D-Methorphan Hb/P-Epd HCl/Bpm 118 Ml Syrup, 5 ML PO Q4H PRN for CONGESTION Prescribed by: JIMENEZ STOKES on 09/14/18 1832 Diphenhydramine HCl 25 Mg Capsule, 25 MG PO DAILY, (Reported) Ibuprofen 800 Mg Tablet, 800 MG PO Q8H PRN for PAIN-MILD, (Reported) Montelukast Sodium 10 Mg Tablet, 10 MG PO DAILY, (Reported) Omeprazole 20 Mg Tablet.dr, 20 MG PO DAILY, (Reported) Patient Home Medication List Home Medication List Reviewed: Yes Review of Systems Review of Systems Constitutional: see HPI EENTM: see HPI Respiratory: no symptoms reported Cardiovascular: no symptoms reported Genitourinary: no symptoms reported Musculoskeletal: no symptoms reported Skin: no symptoms reported Psychiatric/Neurological: No Symptoms Reported Hematologic/Lymphatic: No Symptoms Reported Immunological/Allergic: no symptoms reported Past Nodtizf-Zyrban-Actzie Hx Patient Social History Recent Hopitalizations: No Immunizations Up To Date Tetanus Booster (TDap): Unknown Seasonal Allergies Seasonal Allergies: Yes Past Medical History Surgeries: Yes (Gall Bladder`removed) Coronary Stent, Gallbladder Respiratory: No Cardiac: Yes (MITRAL VALVE PROLAPSE) Coronary Artery Disease, Valvular Heart Disease 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) Stroke Reproductive Disorders: No Sexually Transmitted Disease: No HIV/AIDS: No Genitourinary: Yes Prostate Problems, Kidney Stones Gastrointestinal: Yes Gastroesophageal Reflux Musculoskeletal: No Endocrine: Yes (THYROID NODULE) Loss of Vision: Right Hearing Impairment: Denies Cancer: No Psychosocial: No Integumentary: No Blood Disorders: No Adverse Reaction/Blood Tranf: No (N/A) Physical Exam Vital Signs Vital Signs - First Documented 11/13/18 11:10 Temp 97.9 Pulse 67 Resp 18 B/P (MAP) 144/105 (118) Pulse Ox 100 O2 Delivery Room Air Capillary Refill : Height, Weight, BMI Height: 5'4.00" Weight: 165lbs. 0.0oz. 74.052632ei; 28.3 BMI Method:Stated General Appearance: No Apparent Distress, WD/WN Eyes: Bilateral Eye Normal Inspection, Bilateral Eye PERRL, Bilateral Eye EOMI HEENT: PERRL/EOMI, TMs Normal Neck: Full Range of Motion, Normal Inspection Respiratory: No Accessory Muscle Use, No Respiratory Distress Cardiovascular: Regular Rate, Rhythm, Normal Peripheral Pulses Gastrointestinal: Normal Bowel Sounds, Non Tender, Soft Extremity: Normal Capillary Refill, Normal Inspection, Normal Range of Motion Neurologic/Psychiatric: Alert, Oriented x3, No Motor/Sensory Deficits Skin: Normal Color, Warm/Dry Progress/Results/Core Measures Suspected Sepsis SIRS Temperature: Pulse: Respiratory Rate: Laboratory Tests 11/13/18 11:11: White Blood Count 7.7 Blood Pressure / Mean: Laboratory Tests 11/13/18 11:11: Creatinine 1.08, Platelet Count 272, Total Bilirubin 0.6 Results/Orders Lab Results Laboratory Tests Test 11/13/18 11:11 Range/Units White Blood Count 7.7 4.3-11.0 10^3/uL Red Blood Count 5.03 4.35-5.85 10^6/uL Hemoglobin 14.4 13.3-17.7 G/DL Hematocrit 43 40-54 % Mean Corpuscular Volume 85 80-99 FL Mean Corpuscular Hemoglobin 29 25-34 PG Mean Corpuscular Hemoglobin Concent 34 32-36 G/DL Red Cell Distribution Width 13.4 10.0-14.5 % Platelet Count 272 130-400 10^3/uL Mean Platelet Volume 10.5 H 7.4-10.4 FL Neutrophils (%) (Auto) 76 H 42-75 % Lymphocytes (%) (Auto) 16 12-44 % Monocytes (%) (Auto) 8 0-12 % Eosinophils (%) (Auto) 0 0-10 % Basophils (%) (Auto) 0 0-10 % Neutrophils # (Auto) 5.8 1.8-7.8 X 10^3 Lymphocytes # (Auto) 1.2 1.0-4.0 X 10^3 Monocytes # (Auto) 0.6 0.0-1.0 X 10^3 Eosinophils # (Auto) 0.0 0.0-0.3 10^3/uL Basophils # (Auto) 0.0 0.0-0.1 10^3/uL Sodium Level 137 135-145 MMOL/L Potassium Level 4.1 3.6-5.0 MMOL/L Chloride Level 102 98-107 MMOL/L Carbon Dioxide Level 25 21-32 MMOL/L Anion Gap 10 5-14 MMOL/L Blood Urea Nitrogen 10 7-18 MG/DL Creatinine 1.08 0.60-1.30 MG/DL Estimat Glomerular Filtration Rate > 60 BUN/Creatinine Ratio 9 Glucose Level 136 H 70-105 MG/DL Calcium Level 9.9 8.5-10.1 MG/DL Corrected Calcium 9.5 8.5-10.1 MG/DL Total Bilirubin 0.6 0.1-1.0 MG/DL Aspartate Amino Transf (AST/SGOT) 14 5-34 U/L Alanine Aminotransferase (ALT/SGPT) 17 0-55 U/L Alkaline Phosphatase 125 40-136 U/L Troponin I < 0.028 <0.028 NG/ML Total Protein 7.7 6.4-8.2 GM/DL Albumin 4.5 3.2-4.5 GM/DL My Orders Orders - JIMENEZ STOKES APRN Cbc With Automated Diff (11/13/18 11:02) Comprehensive Metabolic Panel (11/13/18 11:02) Ed Iv/Invasive Line Start (11/13/18 11:02) Ekg Tracing (11/13/18 11:02) Troponin I (11/13/18 11:02) Fentanyl Injection (Sublimaze Injection (11/13/18 11:15) Lactated Ringers (Lr 1000 Ml Iv Solution (11/13/18 11:30) Medications Given in ED Current Medications Medications Dose Ordered Sig/Ana Cristina Route Start Time Stop Time Status Last Admin Dose Admin Fentanyl Citrate 50 mcg ONCE ONCE IVP 11/13/18 11:15 11/13/18 11:16 DC 11/13/18 11:27 50 MCG Vital Signs/I&O 11/13/18 11:10 Temp 97.9 Pulse 67 Resp 18 B/P (MAP) 144/105 (118) Pulse Ox 100 O2 Delivery Room Air Capillary Refill : Departure Communication (Admissions) 1247-reexamination, sleeping but arousable to verbal stimuli. Reports the sensation of tightness in his throat is still present but it is better, mostly on the right lateral aspect of his throat. He is able swallow his own secretions and breathe without any troubles or stridor. There is no external bleeding or obvious swelling. Blood pressure is 120s over 70s. States that the pain is down to a 2, he still doesn't feel well but he does feel better. Labs are unrem arkable, we will discharge him on home with return precautions for any difficulty swallowing fevers chills or trouble breathing. Impression Primary Impression: transient global weakness Disposition: 01 HOME, SELF-CARE Condition: Stable Departure-Patient Inst. Decision time for Depature: 12:02 Referrals: JAVIER RAMEY (PCP/Family) Primary Care Physician Patient Instructions: Generalized Weakness Add. Discharge Instructions: 1. Return to ER for any concerns 2. Follow-up with her doctor next week 3. JIMENEZ STOKES APRN Nov 13, 2018 11:08
[2018-11-13] MEDS ORDERED: fentaNYL INJECTION 100 MCG/2 ML AMP IVP ONE (11:15)
[2018-11-13 11:26] LABS: BASOPHILS % (AUTO) 0 % (0-10); EOSINOPHILS % (AUTO) 0 % (0-10); HEMATOCRIT 43 % (40-54); HEMOGLOBIN 14.4 G/DL (13.3-17.7); LYMPHOCYTES # (AUTO) 1.2 X 10^3 (1.0-4.0); LYMPHOCYTES % (AUTO) 16 % (12-44); MEAN CORPUSCULAR HEMOGLOBIN 29 PG (25-34); MEAN CORPUSCULAR HGB CONC 34 G/DL (32-36); MEAN CORPUSCULAR VOLUME 85 FL (80-99); MEAN PLATELET VOLUME 10.5 FL (7.4-10.4); MONOCYTES # (AUTO) 0.6 X 10^3 (0.0-1.0); MONOCYTES % (AUTO) 8 % (0-12); NEUTROPHILS # (AUTO) 5.8 X 10^3 (1.8-7.8); NEUTROPHILS % (AUTO) 76 % (42-75); PLATELET COUNT 272 10^3/uL (130-400); RED CELL DISTRIBUTION WIDTH 13.4 % (10.0-14.5); WHITE BLOOD COUNT 7.7 10^3/uL (4.3-11.0)
[2018-11-13] MEDS ORDERED: LACTATED RINGERS 1,000 ML IV SCH (11:30)
[2018-11-13 11:52] LABS: ALANINE AMINOTRANSFERASE 17 U/L (0-55); ALBUMIN 4.5 GM/DL (3.2-4.5); ALKALINE PHOSPHATASE 125 U/L (40-136); BILIRUBIN,TOTAL 0.6 MG/DL (0.1-1.0); BUN/CREATININE RATIO 9; CALCIUM 9.9 MG/DL (8.5-10.1); CARBON DIOXIDE 25 MMOL/L (21-32); CHLORIDE 102 MMOL/L (98-107); CREATININE SERUM 1.08 MG/DL (0.60-1.30); GFR ESTIMATED > 60; GLUCOSE 136 MG/DL (70-105); POTASSIUM 4.1 MMOL/L (3.6-5.0); SODIUM 137 MMOL/L (135-145); TOTAL PROTEIN 7.7 GM/DL (6.4-8.2)
[2018-11-13 12:17] VITALS: BP 128/88
== END 2018-11-13 12:13 | disposition home or self-care (01) ==
LOC: EDUNIT# 10:59 → ER 11:00
DX: R53.1 Weakness (principal); I10 Essential (primary) hypertension; I25.10 Atherosclerotic heart disease of native coronary artery without angina pectoris; K21.9 Gastro-esophageal reflux disease without esophagitis; Z87.442 Personal history of urinary calculi; Z86.73 Personal history of transient ischemic attack (TIA), and cerebral infarction without residual deficits; Z95.5 Presence of coronary angioplasty implant and graft; Z98.890 Other specified postprocedural states
CPT/HCPCS: 36415; 80053; 84484; 85025

== ENCOUNTER → 2018-11-13 | Outpatient (CLI) | payer MEDICARE ==
[~2018-11-13] VITALS: Ht 162.6 cm; Wt 74.8 kg
[2018-11-13] VITALS (12 sets, daily range): BP systolic 125–156; BP diastolic 90–112
[~2018-11-13] MED LIST changes: +LIDOCAINE 1% INJ 20 ML 20 ML VIAL INJ ONE
--- NOTE | 2018-11-13 10:53 | NUR ---
POST THYROID BIOPSY, PATIENT BECAME VISIBLY SHAKY AND CLAMY. PT ALERT AND AWAKE. STATES HE FEELS PRESSURE IN HIS THROAT. PT HOOKED UP TO MONITOR AND BLOOD SUGAR CHECKED (105). SATTING 99% ON RA AND STATES NO DIFFICULTY BREATHING OR SWALLOWING. DR. HAMLIN IN ROOM, TRANSFERRING PATIENT TO ER TO BE FURTHER EVALUATED. Addendum: 11/13/18 at 1237 by HENRI HODGE RN [id number]: PROCEDURE ENDED. PT IMMEDIATELY BECAME DIAPHORETIC, CLAMY AND SHAKY. ALERT AND ORIENTED STATING HIS NECK HURT. PT HOOKED UP TO MONITOR BP 156/112. HR 78. SA02 99% ON RA. PERRLA. BLOOD SUGAR 105. PT RECOVERED IN PROCEDURE ROOM ON CART UNTIL 1053 WITH MINIMAL IMPROVEMENT. STILL DIAPHORETIC AND SHAKY. DR. HAMLIN IN ROOM - PT TO ER AT 1053.
--- NOTE | 2018-11-14 11:24 | RADIOLOGY REPORT ---
NAME: ROSALINA ARROYO [facility] REC#: [id number] PT STATUS: REG CLI : 1970 PHYSICIAN: JAVIER RAMEY ADMIT DATE: 11/13/18/RAD Signed Date of Exam:11/13/18 US NEEDLE ASPIRATION PROCEDURE INDICATION: Right thyroid nodule. Patient presents for ultrasound guided biopsy. Patient was brought to the procedure room, placed on table in the supine position. Ultrasound imaging over the right neck was performed to evaluate appropriate entry site. The right neck was then prepped and draped in the usual sterile fashion. Small amount of 1% lidocaine was utilized for local anesthesia. A total of 3 passes were made into the dominant solid mass right lobe of the thyroid utilizing a 25-gauge needle and fine needle aspiration technique. Two passes were made into the nodule with 20-gauge Temno needle and core biopsies were obtained. Needle was withdrawn and hemostasis obtained using manual compression. Following the procedure, patient did report being experience some pain in the neck as well as lightheadedness. Patient was monitored for a period of time. Blood pressure was elevated. Heart rate is normal. Blood sugar was normal. Patient did appear to be somewhat clammy. Patient was given cold compress for the neck puncture site. Patient was also given juice and crackers. Patient was continued to be monitored by radiology nursing for approximately one hour. Patient stated that he was feeling a little better but was not comfortable driving home. Patient was then transferred to the emergency department for additional workup and monitoring. IMPRESSION: Right thyroid nodule FNA and core biopsy utilizing sonographic guidance, as described. Dictated by: Dictated on workstation # [id number] Dict: 11/13/18 1059 Trans: 11/14/18 0809 NELY [id number] Interpreted by: KIM HAMLIN MD Electronically signed by: KIM HAMLIN MD 11/14/18 0809 ROSS
== END ==
LOC: RAD 08:01
PROVIDERS: ATTEND Nurse Practitioner
DX: E04.1 Nontoxic single thyroid nodule (principal); J01.10 Acute frontal sinusitis, unspecified
CPT/HCPCS: 82962; 88173; 88305

== ENCOUNTER 2020-10-21 09:58 | Emergency (ER) | payer MEDICARE ==
[~2020-10-21] VITALS: Ht 162.5 cm; Wt 63.5 kg
[~2020-10-21 09:58] MED LIST changes: -MONT10TA24 PO; +MONT10TA32 PO; -OXYC-471 PO; +OXYC1TAB11 PO; -TAMS0.4C98 PO; +TMSL.4C PO
--- NOTE | 2020-10-21 10:19 | ED Cough/URI ---
General Chief Complaint: Cough/Cold/Flu Symptoms Stated Complaint: BODY ACHES,CHILLS,SORE THROAT Source: patient Exam Limitations: no limitations History of Present Illness Date Seen by Provider: October 21, 2020 Time Seen by Provider: 10:10 Initial Comments Patient to the ER by private conveyance with chief complaint that last night he started having some swelling in the back of his throat feels like he has a sore throat. He has no cough fever, nausea vomiting diarrhea or sick contacts. He does claim to have some chills but said his thermometer never read high. He has a history of a thyroid nodule that he was supposed to have surgery on a year ago but because of family issues he got lost to follow-up. He now follows with Dr. Cain. He has not had vaccination for influenza or COVID-19 in the last year. He has no problems swallowing. He has some nasal congestion general body aches and malaise. Allergies and Home Medications Allergies Coded Allergies: No Known Drug Allergies (Unverified , 07/09/17) Home Medications D-Methorphan Hb/P-Epd HCl/Bpm 118 Ml Syrup, 5 ML PO Q4H PRN for CONGESTION Prescribed by: JIMENEZ STOKES on 09/14/181831 Diphenhydramine HCl 25 Mg Capsule, 25 MG PO DAILY, (Reported) Ibuprofen 800 Mg Tablet, 800 MG PO Q8H PRN for PAIN-MILD, (Reported) Montelukast Sodium 10 Mg Tablet, 10 MG PO DAILY, (Reported) Omeprazole 20 Mg Tablet.dr, 20 MG PO DAILY, (Reported) Patient Home Medication List Home Medication List Reviewed: Yes Review of Systems Review of Systems Constitutional: chills; No diaphoresis, No fever; malaise EENTM: see HPI; No ear discharge, No hearing loss, No ear pain Respiratory: No cough, No short of breath Cardiovascular: No chest pain, No edema Gastrointestinal: No abdominal pain, No vomiting Genitourinary: No dysuria Musculoskeletal: back pain (chronic); No joint pain All Other Systems Reviewed Negative Unless Noted: Yes Past Xpzqdje-Nyccmk-Zsonss Hx Patient Social History Alcohol Use: Denies Use Smoking Status: Never a Smoker 2nd Hand Smoke Exposure: No Recent Hopitalizations: No Immunizations Up To Date Tetanus Booster (TDap): Unknown Seasonal Allergies Seasonal Allergies: Yes Past Medical History Surgeries: Yes (Gall Bladder`removed) Coronary Stent, Gallbladder Respiratory: No Cardiac: No (MITRAL VALVE PROLAPSE) Coronary Artery Disease, Valvular Heart Disease 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 0.0oz. 74.031351gu; 28.3 BMI Method:Stated General Appearance: WD/WN, mild distress Eyes: Bilateral Eye Normal Inspection, Bilateral Eye PERRL, Bilateral Eye EOMI HEENT: No photophobia; pharyngeal erythema; No tonsillar exudate; other (Nasal mucosa erythematous with mild clear rhinorrhea) Neck: supple, lymphadenopathy (R), lymphadenopathy (L) (Shotty bilateral anterior lymphadenopathy), tender lateral; No thyromegaly Respiratory: lungs clear, normal breath sounds, no respiratory distress (Oxygen saturation 99% on room air without labored breathing), no accessory muscle use Cardiovascular: normal peripheral pulses, regular rate, rhythm Neurologic/Psychiatric: alert, normal mood/affect Skin: normal color, warm/dry Progress/Results/Core Measures Suspected Sepsis SIRS Temperature: Pulse: Respiratory Rate: Blood Pressure / Mean: Results/Orders Lab Results Laboratory Tests Test 10/21/20 10:15 10/21/20 10:25 Range/Units SARS-CoV-2 RNA (RT-PCR) Not Detected Not Detecte Group A Streptococcus Screen NEGATIVE NEGATIVE My Orders Orders - ROSA ESPINAL Rapid Strep A Screen (10/21/20 10:18) Covid 19 Inhouse Test (10/21/20 10:18) Vital Signs/I&O 10/21/20 10/21/20 10:05 10:05 Temp 37.8 Pulse 91 Resp 18 B/P (MAP) 139/97 (111) Pulse Ox 97 O2 Delivery Room Air Room Air Capillary Refill : Progress Note : Time: 10:23 Progress Note Rapid strep, and COVID-19. Aseptic vital signs. Likely has a viral upper respiratory tract infection/pharyngitis. No evidence of thyromegaly. Departure Impression Primary Impression: Viral upper respiratory tract infection with cough Disposition: HOME, SELF-CARE Condition: Stable Departure-Patient Inst. Decision time for Depature: 11:00 Referrals: JAVIER RAMEY (PCP/Family) Primary Care Physician Patient Instructions: Viral Upper Respiratory Infection, Adult (DC) Add. Discharge Instructions: Drink plenty of fluids. Tea with honey and lemon can be helpful for sore throat. Salt water gargles may help reduce swelling in your throat. Expect symptoms to improve in the next 5 to 7 days. Return to the ER if having difficulty swallowing or significant swelling otherwise plan to follow-up with Dr. Cain for work-up of your thyroid. All discharge instructions reviewed with patient and/or family. Voiced understanding. Work/School Note: Work Release Form Date Seen in the Emergency Department: October 21, 2020 Return to Work: October 26, 2020 Restrictions: No Restrictions Other Restrictions Listed Below: May return sooner if symptom-free for 24 hours. ROSA ESPINAL October 21, 2020 10:19
[2020-10-21 11:10] VITALS: BP 110/71
== END 2020-10-21 11:10 | disposition home or self-care (01) ==
LOC: EDUNIT# 09:58 → ER 09:59
DX: J06.9 Acute upper respiratory infection, unspecified (principal); R05 Cough; K21.9 Gastro-esophageal reflux disease without esophagitis; Z20.822 Contact with and (suspected) exposure to COVID-19; Z86.73 Personal history of transient ischemic attack (TIA), and cerebral infarction without residual deficits; Z79.899 Other long term (current) drug therapy
CPT/HCPCS: 87430; 87636; 99284